=== PATIENT | female | born 1990 | race Caucasian/White ===

== ENCOUNTER 2016-07-08 13:33 | Observation (INO) | payer OTHER ==
[2016-07-08] MEDS ORDERED: NS 0.9% 1000 ML* 1,000 ML IV ONE (14:11)
[2016-07-08 14:40] LABS: Hematocrit 40 % (35-47); Hemoglobin 13.5 g/dl (12.0-16.0); Mean Corpuscular HGB Conc 34 g/dl (31-36); Mean Corpuscular Hemoglobin 30 pg (27-31); Mean Corpuscular Volume 89 fL (80-97); Mean Platelet Volume 9 um3 (7.4-10.4); Red Blood Count 4.48 10^6/ul (4.0-5.4); Red Cell Distribution Width 12 % (10.5-15)
[2016-07-08 14:57] LABS: ALT 12 U/L (7-52); AST 16 U/L (13-39); Albumin 4.8 g/dL (3.2-5.2); Alkaline Phosphatase 30 U/L (34-104); Anion Gap 11 mmol/L (2-11); BUN/Creatinine Ratio 15.9 (8-20); Blood Urea Nitrogen 13 mg/dL (6-24); CO2 Carbon Dioxide 23 mmol/L (22-32); Calcium 9.9 mg/dL (8.6-10.3); Chloride 101 mmol/L (101-111); EGFR African American 107.5 (>60); EGFR Non-African American 83.6 (>60); Globulin 2.6 g/dL (2-4); Glucose 133 mg/dL (70-100); Potassium 3.4 mmol/L (3.5-5.0); Sodium 135 mmol/L (133-145); Total Protein 7.4 g/dL (6.4-8.9)
[2016-07-08 15:15] LABS: Urine Bacteria 1+ (Absent); Urine Bilirubin Negative (Negative); Urine Glucose Negative (Negative); Urine Nitrite Negative (Negative)
[2016-07-08 15:34] LABS: Acetaminophen < 15 mcg/mL; Alcohol < 10 mg/dL (<10); Salicylate < 2.50 mg/dL (<30)
[2016-07-08 15:35] LABS: Benzodiazepine Urine Screen None Detected (None Detect)
[2016-07-08 15:45] LABS: TSH (Thyroid Stimulating Horm) 4.13 mcIU/mL (0.34-5.60)
[2016-07-08] MEDS ORDERED: Potassium Chlor TAB* 20 MEQ TAB.ER PO ONE (16:08)
[2016-07-08] MEDS ORDERED: Acetaminophen TAB* 325 MG PO PRN (17:48)
[2016-07-08] MEDS ORDERED: NS 0.9% 1000 ML* 2,000 ML IV ONE (17:48)
[2016-07-08] MEDS ORDERED: NS 0.9% 1000 ML* 1,000 ML IV SCH (18:00)
[2016-07-08 18:16] LABS: Amylase 40 U/L (29-103); Lipase < 10 U/L (11.0-82.0)
--- NOTE | 2016-07-08 18:33 | ED ---
Shashi Dhaliwal Auryana, scribed for Silverio Rao MD on 07/08/16 at 1420 . Psychiatric Complaint - HPI Summary HPI Summary: 25 year old female presents to ED with CC of chest pain on triage. She also states that she took more than the advised amount of her prescription - intentionally - reports took too much of all of them. On initial registration with ER front end developer designer staff - patient states that she has mental health history but did not explicitly state, and stated that she was a [employer] Student. She denies any vomiting when asked. PRESCRIPTIONS PRESENT IN PATIENT'S PURSE ON ED VISIT- SEE NURSES NOTE 07/08/16 15 :44 - History Of Current Complaint Chief Complaint: EDMentalHealth Time Seen by Provider: 07/08/16 14:08 Hx From Patient Unobtainable Due To: Other - level 5 caveat due to agitation- uncooperative Character: Fearful, Anxious, Angry, Frustrated Associated Signs And Symptoms: Positive: Paranoid Behavior Ingestion History: Type/Name Of Drug - methylphenidate 18mg lorazepam cyclobenzaprine, Amount Ingested - methylphenidate 18 mg unknown lorazepam 0.5 mg unknown cyclobenzaprine 5 mg unknown, Approximate Time Of Ingestion - unknown - [employer] - Allergies/Home Medications Home Medications: Home Medications Unobtainable [Unobtainable] 07/08/16 [History Confirmed 07/08/16] PMH/Surg Hx/FS Hx/Imm Hx Infectious Disease History: Denies: Traveled Outside the [place] in Last 30 Days - Additional Comments History Additional Comments: level 5 caveat to due agitation/uncooperative Review of Systems - ROS Summary Review of Systems Summary: level 5 caveat due to agitation-uncooperative Positive: Chest Pain - per triage Positive: Abdominal Pain - per nurse Positive: Other - agitiation All Other Systems Reviewed And Are Negative: Yes Physical Exam - Summary Physical Exam Summary: VITAL SIGNS: Reviewed. GENERAL: Patient is a well-developed and nourished female who is lying agitated in the stretcher. She is incoherent. Patient is not in any acute respiratory distress. She is a level 5 caveat due to agitation/uncooperative HEAD AND FACE: No signs of trauma. No ecchymosis, hematomas or skull depressions. No sinus tenderness. EYES: PERRLA, EOMI x 2, No injected conjunctiva, no nystagmus. EARS: Hearing grossly intact. Ear canals and tympanic membranes are within normal limits. MOUTH: Oropharynx within normal limits. NECK: Supple, trachea is midline, no adenopathy, no JVD, no carotid bruit, no c- spine tenderness, neck with full ROM. CHEST: Symmetric, no tenderness at palpation LUNGS: Clear to auscultation bilaterally. No wheezing or crackles. CVS: Tachycardic but regular rhythm S1 and S2 present, no murmurs or gallops appreciated. ABDOMEN: Soft, non-tender. No signs of distention. No rebound no guarding, and no masses palpated. Bowel sounds are normal. EXTREMITIES: FROM in all major joints, no edema, no cyanosis or clubbing. NEURO: Alert and oriented x 3. No acute neurological deficits. Speech is normal and follows commands. SKIN: Dry and warm Triage Information Reviewed: Yes Vital Signs On Initial Exam: Initial Vitals Temp Pulse Resp BP Pulse Ox 98.5 F 82 20 128/78 98 07/08/16 14:01 07/08/16 14:01 07/08/16 14:01 07/08/16 14:01 07/08/16 14:01 Vital Signs Reviewed: Yes Completion Of Physical Exam Limited Due To: Level 5 - level 5 caveat due to agitation/uncooperative Diagnostics - Vital Signs Vital Signs Temp Pulse Resp BP Pulse Ox 07/08/16 14:01 98.5 F 82 20 128/78 98 - Laboratory Lab Results: Lab Results 07/08/16 07/08/16 07/08/16 Range/Units 14:28 14:28 14:48 WBC 10.0 (3.5-10.8) 10^3/ul RBC 4.48 (4.0-5.4) 10^6/ul Hgb 13.5 (12.0-16.0) g/dl Hct 40 (35-47) % MCV 89 (80-97) fL MCH 30 (27-31) pg MCHC 34 (31-36) g/dl RDW 12 (10.5-15) % Plt Count 272 (150-450) 10^3/ul MPV 9 (7.4-10.4) um3 Neut % (Auto) 84.3 H (38-83) % Lymph % (Auto) 11.7 L (25-47) % [place] % (Auto) 3.1 (1-9) % Eos % (Auto) 0.1 (0-6) % Baso % (Auto) 0.8 (0-2) % Absolute Neuts (auto) 8.4 H (1.5-7.7) 10^3/ul Absolute Lymphs (auto) 1.2 (1.0-4.8) 10^3/ul Absolute Monos (auto) 0.3 (0-0.8) 10^3/ul Absolute Eos (auto) 0 (0-0.6) 10^3/ul Absolute Basos (auto) 0.1 (0-0.2) 10^3/ul Absolute Nucleated RBC 0.01 10^3/ul Nucleated RBC % 0.1 Sodium 135 (133-145) mmol/L Potassium 3.4 L (3.5-5.0) mmol/L Chloride 101 (101-111) mmol/L Carbon Dioxide 23 (22-32) mmol/L Anion Gap 11 (2-11) mmol/L BUN 13 (6-24) mg/dL Creatinine 0.82 (0.51-0.95) mg/dL Est GFR ( Amer) 107.5 (>60) Est GFR (Non-Af Amer) 83.6 (>60) BUN/Creatinine Ratio 15.9 (8-20) Glucose 133 H (70-100) mg/dL Calcium 9.9 (8.6-10.3) mg/dL Total Bilirubin 0.70 (0.2-1.0) mg/dL AST 16 (13-39) U/L ALT 12 (7-52) U/L Alkaline Phosphatase 30 L (34-104) U/L Troponin I 0.00 (<0.04) ng/mL Total Protein 7.4 (6.4-8.9) g/dL Albumin 4.8 (3.2-5.2) g/dL Globulin 2.6 (2-4) g/dL Albumin/Globulin Ratio 1.8 (1-3) Amylase 40 (29-103) U/L Lipase < 10 L (11.0-82.0) U/L TSH 4.13 (0.34-5.60) mcIU/mL Beta HCG, Quant < 0.60 mIU/mL Urine Color Felicia Urine Appearance Cloudy Urine pH 6.0 (5-9) Ur Specific [place] 1.024 (1.010-1.030) Urine Protein 1+(30 mg/dl) H (Negative) Urine Ketones 1+ H (Negative) Urine Blood 1+ H (Negative) Urine Nitrate Negative (Negative) Urine Bilirubin Negative (Negative) Urine Urobilinogen Negative (Negative) Ur Leukocyte Esterase 2+ H (Negative) Urine WBC (Auto) 1+(6-10/hpf) H (Absent) Urine RBC (Auto) 3+(>10/hpf) H (Absent) Ur Squamous Epith Cells Present H (Absent) Urine Bacteria 1+ H (Absent) Hyaline Casts Present H (Absent) Urine Glucose Negative (Negative) Urine Ascorbic Acid * H (Negative) Salicylates < 2.50 (<30) mg/dL Urine Opiates Screen (None Detect) Acetaminophen < 15 mcg/mL Ur Barbiturates Screen (None Detect) Ur Phencyclidine Scrn (None Detect) Ur Amphetamines Screen (None Detect) U Benzodiazepines Scrn (None Detect) Urine Cocaine Screen (None Detect) U Cannabinoids Screen (None Detect) Serum Alcohol < 10 (<10) mg/dL 07/08/16 Range/Units 14:48 WBC (3.5-10.8) 10^3/ul RBC (4.0-5.4) 10^6/ul Hgb (12.0-16.0) g/dl Hct (35-47) % MCV (80-97) fL MCH (27-31) pg MCHC (31-36) g/dl RDW (10.5-15) % Plt Count (150-450) 10^3/ul MPV (7.4-10.4) um3 Neut % (Auto) (38-83) % Lymph % (Auto) (25-47) % [place] % (Auto) (1-9) % Eos % (Auto) (0-6) % Baso % (Auto) (0-2) % Absolute Neuts (auto) (1.5-7.7) 10^3/ul Absolute Lymphs (auto) (1.0-4.8) 10^3/ul Absolute Monos (auto) (0-0.8) 10^3/ul Absolute Eos (auto) (0-0.6) 10^3/ul Absolute Basos (auto) (0-0.2) 10^3/ul Absolute Nucleated RBC 10^3/ul Nucleated RBC % Sodium (133-145) mmol/L Potassium (3.5-5.0) mmol/L Chloride (101-111) mmol/L Carbon Dioxide (22-32) mmol/L Anion Gap (2-11) mmol/L BUN (6-24) mg/dL Creatinine (0.51-0.95) mg/dL Est GFR ( Amer) (>60) Est GFR (Non-Af Amer) (>60) BUN/Creatinine Ratio (8-20) Glucose (70-100) mg/dL Calcium (8.6-10.3) mg/dL Total Bilirubin (0.2-1.0) mg/dL AST (13-39) U/L ALT (7-52) U/L Alkaline Phosphatase (34-104) U/L Troponin I (<0.04) ng/mL Total Protein (6.4-8.9) g/dL Albumin (3.2-5.2) g/dL Globulin (2-4) g/dL Albumin/Globulin Ratio (1-3) Amylase (29-103) U/L Lipase (11.0-82.0) U/L TSH (0.34-5.60) mcIU/mL Beta HCG, Quant mIU/mL Urine Color Urine Appearance Urine pH (5-9) Ur Specific [place] (1.010-1.030) Urine Protein (Negative) Urine Ketones (Negative) Urine Blood (Negative) Urine Nitrate (Negative) Urine Bilirubin (Negative) Urine Urobilinogen (Negative) Ur Leukocyte Esterase (Negative) Urine WBC (Auto) (Absent) Urine RBC (Auto) (Absent) Ur Squamous Epith Cells (Absent) Urine Bacteria (Absent) Hyaline Casts (Absent) Urine Glucose (Negative) Urine Ascorbic Acid (Negative) Salicylates (<30) mg/dL Urine Opiates Screen None detected (None Detect) Acetaminophen mcg/mL Ur Barbiturates Screen None detected (None Detect) Ur Phencyclidine Scrn None detected (None Detect) Ur Amphetamines Screen None detected (None Detect) U Benzodiazepines Scrn None detected (None Detect) Urine Cocaine Screen None detected (None Detect) U Cannabinoids Screen None detected (None Detect) Serum Alcohol (<10) mg/dL Result Diagrams: 07/08/16 14:28 07/08/16 14:28 Lab Statement: Any lab studies that have been ordered have been reviewed, and results considered in the medical decision making process. - EKG 14:11 EKG Interpretation: sinus tachycardia @134 - without ST elevation Course/Dx - Course Assessment/Plan: Test results WNL except potassium 3.4 and glucose 133. Urine toxicology negative. EKG sinus tachycardia @ 134 - without ST elevation. In ED course- received IV fluids and heart rate decreased to 105 BPM. We discussed case with poison control and recommend observation for 12 hours. Patient is now hemodynamically stable. At that time, I discussed the patient with Dr. Nunes who accepted the patient for admission. - Differential Dx/Clinical Impression Differential Diagnosis/HQI/PQRI: Positive: Drug Overdose/Intentional Provider Diagnosis: Intentional drug overdose - Physician Notifications Discussed Care Of Patient With: Dr. Nunes Time Discussed With Above Provider: 16:25 - agrees to admit for 12 hour observation Discharge - Discharge Plan Condition: Stable Disposition: ADMITTED TO [facility] documentation as recorded by the Shashi thomas Auryana accurately reflects the service I personally performed and the decisions made by , Silverio Rao MD.
[2016-07-08] MEDS ORDERED: cefTRIAXone VIAL(*) 1,000 MG in NS 0.9% 50 ML* 50 ML IVPB SCH (21:00)
[2016-07-08] MEDS ORDERED: LORazepam INJ* 2 MG/ML 1 ML VIAL IV PUSH ONE (21:00)
--- NOTE | 2016-07-09 00:52 | HP ---
HISTORY AND PHYSICAL: DATE OF ADMISSION: 07/08/16 PRIMARY CARE PROVIDER: Unknown. ATTENDING PHYSICIAN WHILE IN THE HOSPITAL: Dr. Devon Nunes* (report being dictated by Freddy Oviedo NP). CHIEF COMPLAINT: "I took too much of my medicine." HISTORY OF PRESENT ILLNESS: Ms. Jasso is a 25-year-old female patient. We really did not have much history on her as she is not very forthcoming with why she came in today, but according to records and according to her recall, she just took too much of her Flexeril, Ritalin, and Ativan. She came up to the triage desk today, says that she took too much of her medications. She was complaining of chest pain and abdominal pain. She says that she was concerned. There was concern and the triage had asked if she was trying to take her life and she said, yes. At that point, she was brought back to the emergency department and Poison Control was contacted and it was felt that we should admit the patient to evaluate her on telemetry as she was noted to be tachycardic. In discussion with the patient, she said that she was trying to hurt herself. She does not elaborate on details as to why she did this. She does admit to saying that she does have a history of schizophrenia, although I am unable to confirm this report. She says that she is not having any chest pain currently. Denies any abdominal pain. She states she does not feel short of breath and says that she just did not really feel well. She says that she just felt ill, but does not elaborate on this. She does state that she took some perhaps [id number] medications, although she does not want to name them and when I have asked her the questions several times, she says, "no more questions. I do not want to speak about this." PAST MEDICAL HISTORY: Unknown. She did admit to saying that she has a history of schizophrenia. PAST SURGICAL HISTORY: Unknown. HOME MEDICATIONS: Unknown. ALLERGIES TO MEDICATIONS: Unknown. FAMILY HISTORY: Unknown. SOCIAL HISTORY: It does appear that she is a [employer] student, but she does not answer when asked if she is a smoker or a drinker. REVIEW OF SYSTEMS: Attempted, but was unable to be obtained because of the altered mental status. PHYSICAL EXAMINATION GENERAL: At this time, Ms. Jasso is a 25-year-old female patient. She appears to be well nourished, well developed. She does not appear to be in any acute distress. VITAL SIGNS: Reveals blood pressure 122/66, pulse of 132, she does have a heart rate now of 115, respirations are 20, O2 sat was 100%, and temperature 99.8. HEENT: Head is atraumatic, normocephalic. Eyes: EOMs are intact. Her pupils react to light. NECK: Supple. Throat: Oral mucosa appears to be moist. No oropharyngeal erythema. LUNGS: Clear to auscultation. No wheezes, rales, or rhonchi. HEART: Sounds S1, S2. Regular rate and rhythm. She is tachycardic. ABDOMEN: Soft, flat, and nontender. Bowel sounds present. EXTREMITIES: Pulses 2+ throughout. Able to move all 4 extremities with 5/5 strength. NEUROLOGIC: The patient is awake. She is alert and oriented x3. Tongue midline. She is confused only to the month, but she knows where she is. She knows her name. Her baggage and mail agent are equal. Tongue is midline. [id number] intact bilaterally. Heel- to-loredo intact bilaterally. Pulses 2+ throughout. She is able to move all 4 extremities with 5/5 strength. SKIN: Intact. DIAGNOSTIC STUDIES/LAB DATA: Labs today revealed WBC of 10.0, RBC of 4.48, hemoglobin 13.5, hematocrit 40, and platelet count of 272. Sodium was 135, potassium 3.4, chloride of 101, bicarb 23, BUN 13, creatinine of 0.82, glucose 133, and calcium 9.9. Total bili 0.7, AST 16, ALT 12, and alk phos 30. Troponin 0. Albumin 4.8. Urine showed 1+ protein, 1+ ketones, 1+ blood, 2+ leukocyte esterase, 1+ wbc, 3+ rbc, and 1+ bacteria. The urine was obtained. It was negative. She had an EKG obtained today, which showed a sinus tachycardia at a rate of 134, no ST elevations or T-wave inversions, no previous for comparison. Old medical records were limited. ASSESSMENT AND PLAN: Ms. Jasso is a 25-year-old female patient coming to the ER today with complaints of abdominal pain, chest pain, but also stating that she was overdosed on medications. It is unknown what really took and felt that she was trying to take her life. She does state she has a history of schizophrenia. She will be admitted under observation status for: 1. Overdosing: Again etiology is unclear what she actually took. Our plan is to observe her on telemetry, monitor her heart rate, hydrate her, and then when she is medically able, we will get a psychiatric evaluation. She will be on a one-to-one suicide watch. 2. History of schizophrenia: Again, this is unknown if this is true or not. She does state that she has a psychiatric nurse practitioner, last name of Francheska here at [facility], but unfortunately, they are closed for the day. We will try to get collateral from them. 2. DVT prophylaxis: She is low risk, she will be placed on SCDs. 3. Code status: Full code. 4. Fluids, electrolytes, and nutrition: She can have a regular diet. 5. Question of urinary tract infection: Urine does appear to be dirty. I will put her on Rocephin for the time being and await for culture report. TIME SPENT: Time spent on the admission was approximately 70 minutes, greater than half the time was spent [id number] with the patient obtaining my history and physical, the other half time is spent going over the plan of care with the patient and implementing plan of care. I did discuss the plan of care with my attending, Dr. Nunes. He is in agreement. FREDDY OVIEDO NP [id number]/[facility] #: [id number] [place]
[2016-07-09 05:02] VITALS: BP 97/48
[2016-07-09 05:52] LABS: Hematocrit 38 % (35-47); Hemoglobin 12.7 g/dl (12.0-16.0); Mean Corpuscular HGB Conc 33 g/dl (31-36); Mean Corpuscular Hemoglobin 30 pg (27-31); Mean Corpuscular Volume 90 fL (80-97); Mean Platelet Volume 9 um3 (7.4-10.4); Red Blood Count 4.22 10^6/ul (4.0-5.4); Red Cell Distribution Width 13 % (10.5-15); White Blood Count 8.1 10^3/ul (3.5-10.8)
[2016-07-09 06:01] LABS: BUN/Creatinine Ratio 11.1 (8-20); Calcium 8.9 mg/dL (8.6-10.3); EGFR African American 145.8 (>60); EGFR Non-African American 113.4 (>60); Potassium 3.5 mmol/L (3.5-5.0)
--- NOTE | 2016-07-10 01:14 | DS ---
DISCHARGE SUMMARY: DATE OF ADMISSION: 07/08/16 DATE OF DISCHARGE AND TRANSFER: To our psychiatric unit, 07/09/16. PRIMARY CARE PHYSICIAN: None. DISCHARGE DIAGNOSIS: Overdose on Ritalin, Concerta, and lorazepam. SECONDARY DIAGNOSIS: Question of history of schizophrenia. MEDICATIONS AT DISCHARGE: None. HOSPITALIZATION COURSE: Edyta Jasso is a 25-year-old female, who is rather a poor historian but she stated that she had semester at the [employer] this year and she presented to the hospital after she stated that she took several tablets of Concerta, Ritalin, and lorazepam. As per poison control center, the patient was recommended 12 hours' observation on telemetry monitored bed. The patient was monitored on a telemetry bed overnight. She has had no arrhythmias. She continued to be a very vague historian. She will not tell us who is her primary care provider is and who prescribed her the medications that she is on. She stated that she took the overdose because she was "sad and bored." The psychiatry nurse saw the patient in consultation and after discussion with Dr. Sanderson, psychiatrist, it was recommended for the patient to be admitted to the psychiatric floor for further evaluation and treatment. PHYSICAL EXAMINATION: At the time of transfer to the psychiatric unit: Vitals : Blood pressure of 97/48, heart rate of 76 and regular, respiratory rate 16, oxygen saturation 99% on room air, temperature 98.2. General: The patient is a very pleasant 25-year-old female, who is in no acute distress. Alert, awake, and oriented x3. HEENT: Head atraumatic, normocephalic. Eyes: Pupils equal, round, and reactive to light and accommodation. Oropharynx clear. Mucosa moist. Neck: Supple. No JVD. No bruits bilaterally. Cardiovascular: Regular rate and rhythm, no murmur. Respiratory: Clear to auscultation bilaterally. Abdomen: Soft and nontender. Bowel sounds present in all 4 quadrants. Extremities: There is no edema. Pulses present 2+ bilaterally. No clubbing or cyanosis. Neuro Evaluation: Speech is clear. Cranial nerves II through XII are grossly intact. Motor strength is 5/5 bilaterally. Please note that this is a short summary of the patient's hospital stay. Please refer to further medical records for details. TIME SPENT: Approximately 35 minutes was spent on the patient's discharge. [id number]/[facility] #: [id number] MTDD
== END 2016-07-09 09:10 ==
LOC: ED 13:33 → MEDTELE 17:48
PROVIDERS: ADMIT Internal Medicine; ATTEND Internal Medicine
DX: T43.632A Poisoning by methylphenidate, intentional self-harm, initial encounter (principal); T42.4X2A Poisoning by benzodiazepines, intentional self-harm, initial encounter; T48.1X2A Poisoning by skeletal muscle relaxants [neuromuscular blocking agents], intentional self-harm, initial encounter; Y92.9 Unspecified place or not applicable; R07.9 Chest pain, unspecified; R10.9 Unspecified abdominal pain; F20.9 Schizophrenia, unspecified; Z79.899 Other long term (current) drug therapy; I49.3 Ventricular premature depolarization; R00.0 Tachycardia, unspecified
CPT/HCPCS: 36415; 80048; 80053; 80307; 80320; 80329; 81003; 81015; 82150; 83690; 84443; 84484; 84702; 85025; 87086; 93005; 96361; 96374; 96375; 99285; A9270-GY; G0378; G0480; J0696; J2060

== ENCOUNTER 2016-07-09 07:49 | Inpatient (IN) | payer OTHER ==
[2016-07-09] MEDS ORDERED: Acetaminophen TAB* 325 MG PO PRN (11:47)
[2016-07-09] MEDS: Ibuprofen TAB* 400 MG PO PRN (11:57)
[2016-07-09] MEDS ORDERED: Mouth Piece, Nicotine* 1 EACH CARTRIDGE INH ONE (12:00)
--- NOTE | 2016-07-09 14:12 | HP ---
ADMISSION HISTORY AND PHYSICAL: DATE OF ADMISSION: 07/09/16 DATE OF EVALUATION: 07/09/16 IDENTIFICATION: Edyta Jasso is a 25-year-old woman who has reported to the emergency department staff that she took an overdose of Flexeril, Ativan, and Ritalin to kill herself with initial complaint of chest pain and abdominal pain. She was observed on the medical floor on telemetry under advisement of Poison Control due to tachycardia and has been medically cleared and admitted to the [address] [place], [place] [address] for safety, assessment and treatment. She is an unreliable historian. HISTORY OF THE PRESENT ILLNESS: Information was obtained by interview with the patient and review of the electronic medical record. The patient reports "I am here because I took too much of my medication and I tried to kill myself." On review of mood symptoms, she reports that her mood is "temperate." She reports that she is not depressed but mostly just angry. She reports that she attempted suicide because she was just bored and upset and that her anger is directed at boys due to relationship issues. Characteristic of most of her responses to questions, she gives equivocal report of anhedonia when first asked about it, saying "some ways yes, some ways no," then clarifies that she is still interested in writing and music and no longer interested in camping or sailing. She reports that she feels worthless and guilty all the time and has for about the past 4 to 5 months. She reports that her sleep is about 12 to 14 hours per day with extremely low energy. She reports having separation anxiety from her ex-boyfriend. She reports that her appetite is variable but that she is gaining weight. She reports that she usually has difficulties with concentration and decision making. When asked if she is more hopeful or hopeless, she reports "no comment." With regard to suicidal ideation , she states that she does not want to be but she has thoughts about being and would not elaborate how these contradictory statements could be reconciled when asked to do so. She said that she did not have a gun then said that she did have a gun and then said that she did not have a gun. She reports that she has no stress in her life right now when asked what her parmar stressors are. With regard to symptoms of nola including feeling on top of the world or incredibly irritable, or having decreased need for sleep, racing thoughts, talking fast, or spending a lot of money or other unwise impulsive activity, she reports "not necessarily" and will not give any clearer report of this but then gives her explanation as "all people have bipolar tendencies from time to time." She states that her anxiety is always a 10/10. She reports that she has never had panic attacks and then reports that she sometimes has panic attacks and will not elaborate her symptoms of panic attacks. She denies ever any history of trauma leading to any PTSD symptoms but in an offhand way that appears to reflect no true consideration of the question. She reports that she does not have difficulty convincing herself that when she has checked that something is locked or off that it is locked or off, but does report that will have to clean her hands twice to convince herself that she is not carrying away germs from a surface contacted. She reports when asked about psychosis "from time to time usually, having voices or vision" then states "I don't know" and then states "I am just joking." MENTAL STATUS EXAMINATION: This is a young woman looking her age in hospital scrubs. She makes no eye contact. Her speech has regular rate and volume but with long latencies. She has a guarded thought process versus possible impoverishment of thought disorder. She reports her mood as "a little startled. " Her affect is incongruent to topics being discussed with frequent inappropriate laughter. She gives equivocal reports as regards having any auditory or visual hallucinations or paranoid ideation and likewise equivocal report as regards any suicidal ideation. She does state unequivocally that she has no intent of harming anyone. Her insight and judgment are impaired. Her impulse control is thus far intact. She does have adequate grooming and hygiene for the setting. PAST PSYCHIATRIC HISTORY: When asked if she has ever been admitted before to the psychiatric unit, her reply is "yes yesterday." When asked if any time before then, she states no, she has not been admitted psychiatrically before then. She reports that she has been receiving care from Renetta Pritchard at [facility]. She had reported in the emergency department a diagnosis of schizophrenia but then tells me that "I was just having trouble putting into words my emotions," and denies diagnosis with schizophrenia. She reports being on Ativan and Concerta but again after a very long latency, so it is difficult to know her subjective certainty in giving this report. When asked why she = said that she had schizophrenia in the emergency department, she states "I don't know, I'm not really sure, it must have been somebody who was putting words in my mouth." With regard suicide/self harm, she reports that at the age of 14, she "drank some sort of like pills." She reports that she did this because she was just angry. With regard to any suicidal ideation since that time, she reports with a laugh "I don't know." SUBSTANCE ABUSE HISTORY: She denies any abuse of alcohol, marijuana, cocaine, heroin, pain pills, of hallucinogens. She reports huffing glue frequently. Again these reports appear to have limited reliability given their long latencies and inconsistencies. She has reported abuse of Flexeril and other prescription medications in the overdose prior to this admission. When asked if she was a smoker, she paused for 20 seconds and then replied "yes" stating that she has been smoking about 4 cigarettes a day and is in the process of quitting smoking. FAMILY PSYCHIATRIC HISTORY: She reports that "yes everybody in their own unique and respective ways" has mental illness in her family. SOCIAL HISTORY: She reported in the emergency department being a [employer] student but when asked how far she got in the program, she reported that she was offended by this question and would not give further report on that subject. She has a brother in [place] and parents in [place] per information gathered in the emergency department. 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 She reports having come to [place] from [place]. She reports having done well in school. She reports having dropped out from course work at [employer]. LEGAL HISTORY/VIOLENCE HISTORY: She denies any history of agitation, aggression or violence, she denies any legal history. MEDICAL HISTORY: She denies any past medical history although she does report that she will have seizures from time to time and then states that she does not have seizures. She denies having any history of traumatic brain injuries, fainting spells or heart problems. When asked when her last menstrual period, she replies "no." When asked if she is on control, she got up and left the room and ended the interview, but before doing so, stated that she had not had any operations and had given reply to questions about any active symptoms as "you are achy" and stated that she was having a little bit of both nausea and vomiting when asked about those symptoms, but showed no signs of any vomiting activity. She did have a full physical examination by Freddy Oseguera and an EKG was assessed as well in the context of clearance on telemetry under advisement from Poison Control. PHYSICAL EXAMINATION Physical examination was documented by the medical service as entirely within normal limits. As she has not given me any report of active symptoms to be explored, I will not repeat that physical examination. VITAL SIGNS: at 10:16 a.m. today, she had a temp of 98.8, pulse of 86, respiratory rate 16, saturating 99% on room with the blood pressure 96/69. DIAGNOSTIC STUDIES/LAB DATA: Repeat CBC with differential done at 5:39 a.m. on 07/09/16 was entirely within normal limits. Comprehensive metabolic panel showed recovery to normal values on a recheck done at 5:39 a.m. on 07/09/16 from an initial check at 1428 on 07/08/16 that had an elevated glucose to 133 correcting down to 89. Alkaline phosphatase was mildly low at 30 on initial check and was not repeated; lipase was less than 10 on that initial check. test negative. TSH normal at 4.13. Urinalysis found 1+ protein, 1+ ketones, 1+ blood, 2+ leukocyte esterase, 1+ whites, 3+ reds. Squamous cells present, 1+ bacteria, casts present with high ascorbic acid. Freddy Oseguera did note that he was starting Rocephin for presumed urinary tract infection while awaiting culture results. Toxicology screen was negative for all substances in serum and urine. MEDICATIONS: At admission noted in the medical record as unobtainable home medications but in the emergency department documentation, it is indicated that she had contributing to her overdose: 1. Methylphenidate 18 mg tablets. 2. Lorazepam 0.5 mg tablets. 3. Cyclobenzaprine 5 mg tablets. ALLERGIES: Reports having a BEE allergy, requests that an EpiPen be available. ASSESSMENT AND PLAN: Edyta Jasso is a 25-year-old woman who reported to the emergency department that she had schizophrenia and that she overdosed on Ativan, Ritalin, and Flexeril in a suicide attempt. She was admitted to the medical floor for observation for 24-hours and medically cleared and has been transferred to this unit for safety, assessment and treatment. Her report to me is contradictory more often than it is consistent, so there is no clear picture of her psychiatric history or psychiatric status. She is guarded, laughing inappropriately at times throughout the interview, denying but also endorsing symptoms of psychosis and dangerous intent and plan. She does give us possibly useful information that she has been under the care of Renetta Pritchard in the community. We will be seeking HIPAA release to speak with her outpatient providers to gather more information about her psychiatric history and her recent presentations. We will also be seeking release to be able to speak with her brother and parents. Her brother was contacted during the emergency evaluation in the emergency department. We will be offering her group programming and involvement in therapeutic milieu. We will be considering antipsychotic medications against what appears to be an active psychotic process although there is the remote possibility that we are hearing malingered reports for some reason. We will be primarily awaiting for her to be adequately organized or willing to give us a clear report of her current mental status to guide our care of her. DIAGNOSES: 1. Psychotic disorder, not otherwise specified. 2. Mood disorder, not otherwise specified. 3. Rule out chronic psychotic disorder. 4. Rule out undetected substance ingestion contributory to presentation with overtly psychotic symptoms. [id number]/[facility] #: [id number] MTDD
[2016-07-09] MEDS ORDERED: OLANzapine TAB* 5 MG PO SCH (21:00)
[2016-07-10] MEDS ORDERED: diPHENhydraMINE IV* 50 MG/ML 1 ml VIAL (BENADRYL) IM ONE (08:59)
[2016-07-10] MEDS ORDERED: Haloperidol INJ IV/IM* 5 MG/ML AMP IM ONE (08:59)
[2016-07-10] MEDS ORDERED: LORazepam INJ* 2 MG/ML 1 ML VIAL IM ONE (08:59)
[2016-07-10] MEDS ORDERED: LORazepam INJ* 2 MG/ML 1 ML VIAL ONE (09:01)
[2016-07-10] MEDS ORDERED: Haloperidol INJ IV/IM* 5 MG/ML AMP ONE (09:02)
[2016-07-10] MEDS ORDERED: diPHENhydraMINE IV* 50 MG/ML 1 ml VIAL (BENADRYL) ONE (09:02)
[2016-07-10] MEDS ORDERED: Haloperidol TAB* 5 MG PO ONE (09:06)
[2016-07-10] MEDS ORDERED: diPHENhydraMINE PO* 50 MG PO ONE (09:06)
[2016-07-10] MEDS ORDERED: LORazepam TAB(*) 1 MG PO ONE (09:06)
[2016-07-10] MEDS ORDERED: Haloperidol TAB* 5 MG ONE (09:09)
[2016-07-10] MEDS ORDERED: LORazepam TAB(*) 1 MG ONE (09:09)
[2016-07-10] MEDS ORDERED: diPHENhydraMINE PO* 50 MG ONE (09:09)
[2016-07-10] MEDS: OLANzapine TAB*ODT* 5 MG PO PRN (09:14)
[2016-07-10] MEDS: Vitamin THERAPEUTIC TAB PO SCH (09:40)
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
[2016-07-10] MEDS: OLANzapine TAB* 5 MG PO SCH (21:34)
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
[2016-07-11] MEDS: Vitamin THERAPEUTIC TAB PO SCH (09:05)
[2016-07-11] MEDS: Ibuprofen TAB* 400 MG PO PRN (16:47)
[2016-07-11] MEDS: OLANzapine TAB* 5 MG PO SCH (21:31)
--- NOTE | 2016-07-11 21:38 | RAD ---
HISTORY: Patient with psychosis reports having a brain tumor COMPARISONS: None TECHNIQUE: The following sequences were obtained of the head: Sagittal T1-weighted images, axial T2-weighted images, axial FLAIR images, axial susceptibility weighted images, axial T1-weighted images. Additionally, axial diffusion-weighted images were obtained with calculated apparent diffusion coefficients.. FINDINGS: HEMORRHAGE/INFARCT: There is no hemorrhage or acute infarct. MASSES/SHIFT: There is no mass or shift. EXTRA-AXIAL SPACES/MENINGES: There are no extra-axial fluid collections. SULCI AND VENTRICLES: The sulci and ventricles are normal in size and position for the patient's stated age. CEREBRUM: There are no focal parenchymal abnormalities. BRAINSTEM: There are no focal parenchymal abnormalities. CEREBELLUM: There are no focal parenchymal abnormalities. The cerebellar tonsils are normal in size and position. SELLA: The sella is normal. PINEAL: The pineal region is clear. CP ANGLE/TEMPORAL BONES: The labyrinthine structures are grossly normal. VESSELS: Normal flow-voids are noted within the visualized vertebral vasculature. DIFFUSION ABNORMALITIES: There are no diffusion abnormalities. PARANASAL SINUSES/MASTOIDS: There are partially inspissated fluid secretions in the dependent portion of the right maxillary sinus. Remaining visualized paranasal sinuses are clear. ORBITS: The orbits are unremarkable. BONES AND SOFT TISSUE: No bone or soft tissue abnormalities are noted. IMPRESSION: NO MRI EVIDENCE OF INTRACRANIAL ABNORMALITY.
[2016-07-11] MEDS ORDERED: Mouth Piece, Nicotine* 1 EACH CARTRIDGE ONE (22:46)
[2016-07-11] MEDS: Nicotine Inhaler* 10 MG AMP INH PRN (22:46)
[2016-07-12 09:13] LABS: Free T4 0.89 ng/dL (0.61-1.12)
[2016-07-12 09:16] LABS: Prolactin 43.6 ng/mL (1.0-25.0)
[2016-07-12] MEDS: Vitamin THERAPEUTIC TAB PO SCH (09:44)
--- NOTE | 2016-07-12 13:47 | PN ---
Subjective - Subjective Subjective: Attempted to see Otto on follow-up today. She was in her room, n bed. She was guarded, evasive and appeared suspicious when I asked her questions about sleep, appetite, and energy. Objective - Appearance Dysmorphic Features: Yes Hygiene: Normal Grooming: Fairly Well Kept - Behavior Psychomotor Activities: Normal Exhibits Abnormal Movement: No - Attitude and Relatedness Attitude and Relatedness: Superficially Cooperative Eye Contact: Fair - Speech Quality: Unpressured Latencies: Normal Quantity: Appropriate - Mood Patient's Decription of Mood: "Okay" - Affect Observed Affect: Constricted Affect Consistent with: Dysphoria - Level of Consciousness Level of Consciousness: Alert - Impulse Control Impulse Control: Impaired - Insight and Judgement Insight and Judgement: Poor Assessment - Assessment Inpatient DSM-IV Dx: 1. Psychotic disorder, not otherwise specified. 2. Mood disorder, not otherwise specified. 3. Rule out chronic psychotic disorder. 4. Rule out undetected substance ingestion contributory to presentation with overtly psychotic symptoms. Plan - Plan Treatment Plan: Name: OTTO HARDING Birthdate: 1990 [id number] Medications: Current Medications Acetaminophen (Tylenol Tab*) 650 mg PO Q4H PRN PRN Reason: for pain; or Temp >101 F Al Hydrox/Mg Hydrox/Simethicone (Maalox Plus*) 30 ml PO Q4H PRN PRN Reason: INDIGESTION Docusate Sodium (Colace Cap*) 100 mg PO DAILY PRN PRN Reason: CONSTIPATION Ibuprofen (Motrin Tab*) 400 mg PO Q6H PRN PRN Reason: PAIN Last Admin: 07/11/16 16:47 Dose: 400 mg Multivitamins (Theragran Tab*) [address] [facility] Last Admin: 07/12/16 09:44 Dose: Not Given Nicotine (Nicotine Inhaler*) 10 mg INH Q2H PRN PRN Reason: CRAVING Last Admin: 07/11/16 22:46 Dose: 10 mg Olanzapine (Zyprexa * Tab Odt) 5 mg PO Q6H PRN PRN Reason: AGITATION Last Admin: 07/10/16 09:14 Dose: 5 mg Olanzapine (Zyprexa Tab*) [address] [facility] Last Admin: 07/11/16 21:31 Dose: 10 mg
[2016-07-12] MEDS: OLANzapine TAB* 5 MG PO SCH (20:51)
[2016-07-13] MEDS: Vitamin THERAPEUTIC TAB PO SCH (09:12)
[2016-07-13] MEDS: OLANzapine TAB*ODT* 5 MG PO PRN (13:50)
[2016-07-13] MEDS: OLANzapine TAB* 5 MG PO SCH (21:38)
[2016-07-13] MEDS: Docusate CAP* 100 MG PO PRN (21:40)
[2016-07-14] MEDS: Vitamin THERAPEUTIC TAB PO SCH (09:26)
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
[2016-07-14] MEDS: OLANzapine TAB* 5 MG PO SCH (20:58)
[2016-07-14] MEDS: OLANzapine TAB*ODT* 5 MG PO PRN (22:24)
[2016-07-15] MEDS: Vitamin THERAPEUTIC TAB PO SCH (09:38)
--- NOTE | 2016-07-15 13:18 | PN ---
Subjective - Subjective Service Type: [id number] Hosp care 15 min low complexity Subjective: Otto is found in her room, sleeping, but is easily arousable. She is guarded and seems to have some delay in responding to questions, although she is mostly coherent in her responses. She denies any side effects from the olanzapine and states that she's catching up on sleep that she had missed out on prior to admission. She tells me that she withdrew from [employer] graduate school in February of this year but can't seem to think of what she wants to do next with her life. She's renting an apartment in [place] with a roommate but cannot/will not identify that person's name or number. She blurts out "a foster" in response to an earlier question of what she'd like to do occupationally now that she's given up on grad school plans. She denies SI or HI. Objective - Appearance Appearance: Well Developed/Nourished Dysmorphic Features: No Hygiene: Normal Grooming: Fairly Well Kept - Behavior Psychomotor Activities: Normal Exhibits Abnormal Movement: No - Attitude and Relatedness Attitude and Relatedness: Guarded Eye Contact: Fair - Speech Quality: Unpressured Latencies: Long Quantity: Terse - Mood Patient's Decription of Mood: "Okay" - Affect Observed Affect: Tense Affect Consistent with: Dysphoria - Thought Process Patient's Thought Process: Circumstantial Thought Content: Yes Paranoid Ideation, No Suicidal Planning, No Homicidal Ideation - Sensorium Experiencing Hallucinations: No, Sensorium is Clear Type of Hallucinations: Visual: No, Auditory: No, Command: No - Level of Consciousness Level of Consciousness: Alert Orientation: Yes Intact, Yes Orientated to Time, Yes Orientated to Place, Yes Orientated to Person - Impulse Control Impulse Control: Poor - Insight and Judgement Insight and Judgement: Impaired - Group Participation Particating in Group Activities: No - Medication Management Medication Management Adherence: Yes Assessment - Assessment Merits Inpatient Hospitalization: For Immediate Safety, For Stabilization Inpatient DSM-IV Dx: 1. Psychotic disorder, not otherwise specified. 2. Mood disorder, not otherwise specified. 3. Rule out chronic psychotic disorder. 4. Rule out undetected substance ingestion contributory to presentation with overtly psychotic symptoms. Clinical Impression: Unspecified Psychotic DO Plan - Plan Treatment Plan: Name: OTTO HARDING Birthdate: 1990 [id number] The patient is taking olanzapine 10mg PO qhs and appears better organized and less agitated than at admission. She likely has a chronic psychotic disorder and d/c planning will be important in terms of identifying supports in the community. Continue to await further stabilization. Continued Medication Management: Start Medication Medications: Current Medications Acetaminophen (Tylenol Tab*) 650 mg PO Q4H PRN PRN Reason: for pain; or Temp >101 F Al Hydrox/Mg Hydrox/Simethicone (Maalox Plus*) 30 ml PO Q4H PRN PRN Reason: INDIGESTION Docusate Sodium (Colace Cap*) 100 mg PO DAILY PRN PRN Reason: CONSTIPATION Last Admin: 07/13/16 21:40 Dose: 100 mg Ibuprofen (Motrin Tab*) 400 mg PO Q6H PRN PRN Reason: PAIN Last Admin: 07/11/16 16:47 Dose: 400 mg Multivitamins (Theragran Tab*) 1 tab PO DAILY [facility] Last Admin: 07/15/16 09:38 Dose: Not Given Nicotine (Nicotine Inhaler*) 10 mg INH Q2H PRN PRN Reason: CRAVING Last Admin: 07/11/16 22:46 Dose: 10 mg Olanzapine (Zyprexa * Tab Odt) 5 mg PO Q6H PRN PRN Reason: AGITATION Last Admin: 07/14/16 22:24 Dose: 5 mg Olanzapine (Zyprexa Tab*) 10 mg PO BEDTIME [facility] Last Admin: 07/14/16 20:58 Dose: 10 mg - Discharge Plan Discharge Plan: Inpatient Hospitalization
[2016-07-15] MEDS: OLANzapine TAB*ODT* 5 MG PO PRN (14:16)
[2016-07-15] MEDS: Ibuprofen TAB* 400 MG PO PRN (14:16)
[2016-07-15] MEDS: OLANzapine TAB* 5 MG PO SCH (21:39)
[2016-07-16] MEDS: Vitamin THERAPEUTIC TAB PO SCH (11:51)
--- NOTE | 2016-07-16 12:11 | PN ---
Subjective - Subjective Service Type: [id number] Hosp care 15 min low complexity Subjective: The patient is hostile and argumentative on interview, making sarcastic comments such as "Oh, I see. You want to keep me here until I'm social enough to go to your groups and behave in a way that you think is normal, right?" She refused her EEG again this AM and was sleeping in her room when found. She complains of hypersomnolence and hyperphagia from olanzapine but is otherwise tolerating it well. Her brother Gabriel ([phone]) could not be reached for collateral. The patient appears paranoid, believing I'm keeping her in the hospital to punish her. She denies SI or HI. Objective - Appearance Appearance: Well Developed/Nourished Dysmorphic Features: No Hygiene: Normal Grooming: Well Kept - Behavior Psychomotor Activities: Normal Exhibits Abnormal Movement: No - Attitude and Relatedness Attitude and Relatedness: Hostile Eye Contact: Good - Speech Quality: Unpressured Latencies: Normal Quantity: Appropriate - Mood Patient's Decription of Mood: "Angry" - Affect Observed Affect: Tense Affect Consistent with: Dysphoria - Thought Process Patient's Thought Process: Circumstantial Thought Content: Yes Paranoid Ideation, No Passive Wish, No Suicidal Planning, No Homicidal Ideation - Sensorium Experiencing Hallucinations: No, Sensorium is Clear Type of Hallucinations: Visual: No, Auditory: No, Command: No - Level of Consciousness Level of Consciousness: Agitated Orientation: Yes Intact, Yes Orientated to Time, Yes Orientated to Place, Yes Orientated to Person - Impulse Control Impulse Control: Poor - Insight and Judgement Insight and Judgement: Impaired - Group Participation Particating in Group Activities: No - Medication Management Medication Management Adherence: Yes Assessment - Assessment Merits Inpatient Hospitalization: For Immediate Safety, For Stabilization Inpatient DSM-IV Dx: 1. Psychotic disorder, not otherwise specified. 2. Mood disorder, not otherwise specified. 3. Rule out chronic psychotic disorder. 4. Rule out undetected substance ingestion contributory to presentation with overtly psychotic symptoms. Clinical Impression: 26 y.o. single, [place] female with a history of psychosis transferred from the medical unit following an intentional overdose on medications who presents as paranoid, disorganized and psychotic. Plan - Plan Treatment Plan: Name: OTTO HARDING Birthdate: 1990 [id number] The patient is taking olanzapine 10mg PO qhs and appears better organized and less agitated than at admission. She has refused EEG to rule out seizure disorders. She likely has a chronic psychotic disorder and d/c planning will be important in terms of identifying supports in the community. Continue to await further stabilization. Continued Medication Management: Start Medication Medications: Current Medications Acetaminophen (Tylenol Tab*) 650 mg PO Q4H PRN PRN Reason: for pain; or Temp >101 F Last Admin: 07/15/16 16:17 Dose: 650 mg Al Hydrox/Mg Hydrox/Simethicone (Maalox Plus*) 30 ml PO Q4H PRN PRN Reason: INDIGESTION Docusate Sodium (Colace Cap*) 100 mg PO DAILY PRN PRN Reason: CONSTIPATION Last Admin: 07/13/16 21:40 Dose: 100 mg Ibuprofen (Motrin Tab*) 400 mg PO Q6H PRN PRN Reason: PAIN Last Admin: 07/15/16 14:16 Dose: 400 mg Multivitamins (Theragran Tab*) 1 tab PO DAILY [facility] Last Admin: 07/16/16 11:51 Dose: Not Given Nicotine (Nicotine Inhaler*) 10 mg INH Q2H PRN PRN Reason: CRAVING Last Admin: 07/11/16 22:46 Dose: 10 mg Olanzapine (Zyprexa * Tab Odt) 5 mg PO Q6H PRN PRN Reason: AGITATION Last Admin: 07/15/16 14:16 Dose: 5 mg Olanzapine (Zyprexa Tab*) 10 mg PO BEDTIME [facility] Last Admin: 07/15/16 21:39 Dose: 10 mg - Discharge Plan Discharge Plan: Inpatient Hospitalization
[2016-07-16] MEDS: OLANzapine TAB*ODT* 5 MG PO PRN (14:21)
[2016-07-16] MEDS: Al Hydrox/Mg Hydrox/Simet LIQ* 30 ML UDC PO PRN (19:37)
[2016-07-16] MEDS: OLANzapine TAB* 5 MG PO SCH (20:20)
[2016-07-16] MEDS: Docusate CAP* 100 MG PO PRN (20:21)
[2016-07-17 08:02] LABS: HDL Cholesterol 33.6 mg/dL
[2016-07-17] MEDS: Ibuprofen TAB* 400 MG PO PRN (08:35)
[2016-07-17] MEDS: Vitamin THERAPEUTIC TAB PO SCH (08:35)
--- NOTE | 2016-07-17 11:12 | PN ---
[facility]: Group Therapy Note - Service Type Service Type: [id number] Group Psychotherapy - Cognitive Behavioral Group Therapy ( CBT):Patient was attentive and participatory in CBT programming this morning, and remained in good behavioral control. Patient expressed positive insights regarding relevant treatment interventions and goals.
[2016-07-17] MEDS: Nicotine Inhaler* 10 MG AMP INH PRN (13:20)
--- NOTE | 2016-07-17 13:54 | PN ---
Subjective - Subjective Service Type: 87938 Hosp care 25 min moderate complexity Subjective: Otto has been more active and more present on the milieu since yesterday. 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 She indicates that she cannot remember the names of her past psychiatric medications , but that she experience weight gain and hair-loss that made her discontinue them. I received a message from her outpatient psychiatric nurse practitioner, Tariq Guevara ([phone]), who indicated that they have worked together since November,, but the patient has been progressively more psychotic and needs a higher level of care. At one point Otto becomes tearful when telling me about her eyesight being poor. Objective - Appearance Appearance: Well Developed/Nourished Dysmorphic Features: No Hygiene: Normal Grooming: Fairly Well Kept - Behavior Psychomotor Activities: Normal Exhibits Abnormal Movement: No - Attitude and Relatedness Attitude and Relatedness: Guarded Eye Contact: Fair - Speech Quality: Unpressured Latencies: Normal Quantity: Appropriate - Mood Patient's Decription of Mood: "Fine" - Affect Observed Affect: Tearful Affect Consistent with: Dysphoria - Thought Process Patient's Thought Process: Circumstantial Thought Content: Yes Paranoid Ideation, No Passive Wish, No Suicidal Planning, No Homicidal Ideation - Sensorium Experiencing Hallucinations: No, Sensorium is Clear Type of Hallucinations: Visual: No, Auditory: No, Command: No - Level of Consciousness Level of Consciousness: Alert Orientation: Yes Intact, Yes Orientated to Time, Yes Orientated to Place, Yes Orientated to Person - Impulse Control Impulse Control: Poor - Insight and Judgement Insight and Judgement: Impaired - Group Participation Particating in Group Activities: Yes - Medication Management Medication Management Adherence: Yes Assessment - Assessment Merits Inpatient Hospitalization: For Immediate Safety, For Stabilization Inpatient DSM-IV Dx: 1. Psychotic disorder, not otherwise specified. 2. Mood disorder, not otherwise specified. 3. Rule out chronic psychotic disorder. 4. Rule out undetected substance ingestion contributory to presentation with overtly psychotic symptoms. Clinical Impression: 26 y.o. single, [place] female with a history of psychosis transferred from the medical unit following an intentional overdose on medications who presents as paranoid, disorganized and psychotic. Plan - Plan Treatment Plan: Name: OTTO HARDING Birthdate: 1990 [id number] The patient is taking olanzapine 10mg PO qhs and appears better organized and less agitated than at admission. She has refused EEG to rule out seizure disorders. She likely has a chronic psychotic disorder and d/c planning will be important in terms of identifying supports in the community. Continue to await further stabilization. Continued Medication Management: Start Medication Medications: Current Medications Acetaminophen (Tylenol Tab*) 650 mg PO Q4H PRN PRN Reason: for pain; or Temp >101 F Last Admin: 07/15/16 16:17 Dose: 650 mg Al Hydrox/Mg Hydrox/Simethicone (Maalox Plus*) 30 ml PO Q4H PRN PRN Reason: INDIGESTION Last Admin: 07/16/16 19:37 Dose: 30 ml Docusate Sodium (Colace Cap*) 100 mg PO DAILY PRN PRN Reason: CONSTIPATION Last Admin: 07/16/16 20:21 Dose: 100 mg Ibuprofen (Motrin Tab*) 400 mg PO Q6H PRN PRN Reason: PAIN Last Admin: 07/17/16 08:35 Dose: 400 mg Multivitamins (Theragran Tab*) 1 tab PO DAILY [facility] Last Admin: 07/17/16 08:35 Dose: 1 tab Nicotine (Nicotine Inhaler*) 10 mg INH Q2H PRN PRN Reason: CRAVING Last Admin: 07/11/16 22:46 Dose: 10 mg Olanzapine (Zyprexa * Tab Odt) 5 mg PO Q6H PRN PRN Reason: AGITATION Last Admin: 07/16/16 14:21 Dose: 5 mg Olanzapine (Zyprexa Tab*) 10 mg PO BEDTIME [facility] Last Admin: 07/16/16 20:20 Dose: 10 mg - Discharge Plan Discharge Plan: Inpatient Hospitalization
[2016-07-17] MEDS: Nicotine PATCH 7 MG/24 HR* PATCH TRANSDERM SCH (14:16)
[2016-07-17] MEDS: OLANzapine TAB*ODT* 5 MG PO PRN (14:26)
[2016-07-17] MEDS: Nicotine Patch Removal NOTE FOLLOW UP SCH (21:32)
[2016-07-17] MEDS: OLANzapine TAB* 5 MG PO SCH (21:32)
[2016-07-18] MEDS: Nicotine PATCH 7 MG/24 HR* PATCH TRANSDERM SCH (09:44)
[2016-07-18] MEDS: Vitamin THERAPEUTIC TAB PO SCH (09:44)
[2016-07-18] MEDS: Al Hydrox/Mg Hydrox/Simet LIQ* 30 ML UDC PO PRN ×2 (09:45→17:53)
--- NOTE | 2016-07-18 11:06 | PN ---
MHU: Group Therapy Note - Service Type Service Type: [id number] Group Psychotherapy - Group Psychotherapy Note: Edyta presented with better hygiene this morning. She was conversational in group with staff and peers, engaging in coherent conversation.
--- NOTE | 2016-07-18 15:31 | PN ---
Subjective - Subjective Service Type: [id number] Hosp care 25 min moderate complexity Subjective: Otto is met, along with JOSE Pompa, for routine follow up. She is calm and cooperative and asks reasonable d/c planning related questions such as how the medication will affect her weight and blood glucose status and who she will follow up with in the community. She does express at least some interest in moving to [place] to be closer to her brother. Staff notes that she's less bizarre on the unit today. She denies SI or HI. Objective - Appearance Appearance: Well Developed/Nourished Dysmorphic Features: No Hygiene: Normal Grooming: Fairly Well Kept - Behavior Psychomotor Activities: Normal Exhibits Abnormal Movement: No - Attitude and Relatedness Attitude and Relatedness: Cooperative Eye Contact: Fair - Speech Quality: Unpressured Latencies: Normal Quantity: Appropriate - Mood Patient's Decription of Mood: "Okay" - Affect Observed Affect: Fair Affect Consistent with: Euthymia - Thought Process Patient's Thought Process: Coherent Thought Content: Yes Paranoid Ideation, No Passive Wish, No Suicidal Planning, No Homicidal Ideation - Sensorium Experiencing Hallucinations: No, Sensorium is Clear Type of Hallucinations: Visual: No, Auditory: No, Command: No - Level of Consciousness Level of Consciousness: Alert Orientation: Yes Intact, Yes Orientated to Time, Yes Orientated to Place, Yes Orientated to Person - Impulse Control Impulse Control: Tenuous - Insight and Judgement Insight and Judgement: Fair - Group Participation Particating in Group Activities: Yes - Medication Management Medication Management Adherence: Yes Assessment - Assessment Merits Inpatient Hospitalization: For Immediate Safety, For Stabilization Inpatient DSM-IV Dx: 1. Psychotic disorder, not otherwise specified. 2. Mood disorder, not otherwise specified. 3. Rule out chronic psychotic disorder. 4. Rule out undetected substance ingestion contributory to presentation with overtly psychotic symptoms. Clinical Impression: 26 y.o. single, [place] female with a history of psychosis transferred from the medical unit following an intentional overdose on medications who presents as paranoid, disorganized and psychotic. Plan - Plan Treatment Plan: Name: OTTO HARDING Birthdate: 1990 [id number] The patient is taking olanzapine 10mg PO qhs and appears better organized and less agitated than at admission. She has refused EEG to rule out seizure disorders. She likely has a chronic psychotic disorder and d/c planning will be important in terms of identifying supports in the community. Continue to await further stabilization. Continued Medication Management: Start Medication Medications: Current Medications Acetaminophen (Tylenol Tab*) 650 mg PO Q4H PRN PRN Reason: for pain; or Temp >101 F Last Admin: 07/15/16 16:17 Dose: 650 mg Al Hydrox/Mg Hydrox/Simethicone (Maalox Plus*) 30 ml PO Q4H PRN PRN Reason: INDIGESTION Last Admin: 07/18/16 09:45 Dose: 30 ml Docusate Sodium (Colace Cap*) 100 mg PO DAILY PRN PRN Reason: CONSTIPATION Last Admin: 07/16/16 20:21 Dose: 100 mg Ibuprofen (Motrin Tab*) 400 mg PO Q6H PRN PRN Reason: PAIN Last Admin: 07/17/16 08:35 Dose: 400 mg Multivitamins (Theragran Tab*) 1 tab PO DAILY [facility] Last Admin: 07/18/16 09:44 Dose: 1 tab Nicotine (Nicotine Inhaler*) 10 mg INH Q2H PRN PRN Reason: CRAVING Last Admin: 07/17/16 13:20 Dose: 10 mg Nicotine (Nicotine Patch 7 Mg/24 Hr*) 1 patch TRANSDERM DAILY [facility] Last Admin: 07/18/16 09:44 Dose: 1 patch Olanzapine (Zyprexa * Tab Odt) 5 mg PO Q6H PRN PRN Reason: AGITATION Last Admin: 07/17/16 14:26 Dose: 5 mg Olanzapine (Zyprexa Tab*) 10 mg PO BEDTIME [facility] Last Admin: 07/17/16 21:32 Dose: 10 mg Pharmacy Profile Note (Nicotine Patch Removal Note*) 1 note FOLLOW UP 2100 [facility] Last Admin: 07/17/16 21:32 Dose: 1 note - Discharge Plan Discharge Plan: Inpatient Hospitalization
[2016-07-18] MEDS: OLANzapine TAB* 5 MG PO SCH (20:05)
[2016-07-18] MEDS: Nicotine Patch Removal NOTE FOLLOW UP SCH (20:06)
[2016-07-19] MEDS: Vitamin THERAPEUTIC TAB PO SCH (08:20)
[2016-07-19] MEDS: Nicotine PATCH 7 MG/24 HR* PATCH TRANSDERM SCH (08:20)
[2016-07-19] MEDS: Al Hydrox/Mg Hydrox/Simet LIQ* 30 ML UDC PO PRN ×3 (09:48→19:36)
[2016-07-19] MEDS: Ibuprofen TAB* 400 MG PO PRN (13:16)
[2016-07-19] MEDS: Nicotine Inhaler* 10 MG AMP INH PRN (14:02)
[2016-07-19] MEDS: Docusate CAP* 100 MG PO PRN (14:03)
[2016-07-19] MEDS: OLANzapine TAB*ODT* 5 MG PO PRN (19:36)
[2016-07-19] MEDS: OLANzapine TAB* 5 MG PO SCH (22:06)
[2016-07-19] MEDS: Nicotine Patch Removal NOTE FOLLOW UP SCH (22:07)
[2016-07-20] MEDS: Vitamin THERAPEUTIC TAB PO SCH (10:44)
[2016-07-20] MEDS: Nicotine PATCH 7 MG/24 HR* PATCH TRANSDERM SCH (10:44)
[2016-07-20] MEDS: OLANzapine TAB*ODT* 5 MG PO PRN (13:23)
[2016-07-20] MEDS: Al Hydrox/Mg Hydrox/Simet LIQ* 30 ML UDC PO PRN (21:15)
[2016-07-20] MEDS: OLANzapine TAB* 5 MG PO SCH (21:15)
[2016-07-20] MEDS: Nicotine Patch Removal NOTE FOLLOW UP SCH (21:16)
[2016-07-21] MEDS: Vitamin THERAPEUTIC TAB PO SCH (09:34)
[2016-07-21] MEDS: Nicotine PATCH 7 MG/24 HR* PATCH TRANSDERM SCH (09:34)
[2016-07-21] MEDS: Docusate CAP* 100 MG PO PRN (09:36)
[2016-07-21] MEDS: Al Hydrox/Mg Hydrox/Simet LIQ* 30 ML UDC PO PRN ×2 (12:53→17:57)
--- NOTE | 2016-07-21 13:37 | PN ---
MHU: Group Therapy Note - Service Type Service Type: [id number] Group Psychotherapy - Cognitive Behavioral Group Therapy ( CBT):Patient was attentive and participatory in CBT programming this morning, and remained in good behavioral control. Patient expressed positive insights regarding relevant treatment interventions and goals.
--- NOTE | 2016-07-21 14:10 | PN ---
Subjective - Subjective Service Type: 33397 Hosp care 15 min low complexity Subjective: The patient is calm and cooperative. Is reality-focused on examination, asking appropriate questions about discharge aftercare. No acute complaints. Very sedated by meds but attending groups. Objective - Appearance Appearance: Well Developed/Nourished Dysmorphic Features: No Hygiene: Normal Grooming: Well Kept - Behavior Psychomotor Activities: Normal Exhibits Abnormal Movement: No - Attitude and Relatedness Attitude and Relatedness: Cooperative Eye Contact: Fair - Speech Quality: Unpressured Latencies: Normal Quantity: Appropriate - Mood Patient's Decription of Mood: "Good" - Affect Observed Affect: Fair Affect Consistent with: Euthymia - Thought Process Patient's Thought Process: Coherent Thought Content: No Passive Wish, No Suicidal Planning, No Homicidal Ideation, No Paranoid Ideation - Sensorium Experiencing Hallucinations: No, Sensorium is Clear Type of Hallucinations: Visual: No, Auditory: No, Command: No - Level of Consciousness Level of Consciousness: Alert Orientation: Yes Intact, Yes Orientated to Time, Yes Orientated to Place, Yes Orientated to Person - Impulse Control Impulse Control: Tenuous - Insight and Judgement Insight and Judgement: Fair - Group Participation Particating in Group Activities: Yes - Medication Management Medication Management Adherence: Yes Assessment - Assessment Merits Inpatient Hospitalization: Consolidate Improvements, For Discharge Planning Inpatient DSM-IV Dx: 1. Psychotic disorder, not otherwise specified. 2. Mood disorder, not otherwise specified. 3. Rule out chronic psychotic disorder. 4. Rule out undetected substance ingestion contributory to presentation with overtly psychotic symptoms. Clinical Impression: 26 y.o. single, [place] female with a history of psychosis transferred from the medical unit following an intentional overdose on medications who presents as paranoid, disorganized and psychotic. Plan - Plan Treatment Plan: Name: OTTO HARDING Birthdate: 1990 [id number] The patient is taking olanzapine 10mg PO qhs and continues to improve. We will reduce her observation settings and see if she can tolerate this in preparation for possible d/c in the middle of this week. Continued Medication Management: Start Medication Medications: Current Medications Acetaminophen (Tylenol Tab*) 650 mg PO Q4H PRN PRN Reason: for pain; or Temp >101 F Last Admin: 07/15/16 16:17 Dose: 650 mg Al Hydrox/Mg Hydrox/Simethicone (Maalox Plus*) 30 ml PO Q4H PRN PRN Reason: INDIGESTION Last Admin: 07/21/16 12:53 Dose: 30 ml Docusate Sodium (Colace Cap*) 100 mg PO DAILY PRN PRN Reason: CONSTIPATION Last Admin: 07/21/16 09:36 Dose: 100 mg Ibuprofen (Motrin Tab*) 400 mg PO Q6H PRN PRN Reason: PAIN Last Admin: 07/19/16 13:16 Dose: 400 mg Multivitamins (Theragran Tab*) 1 tab PO DAILY [facility] Last Admin: 07/21/16 09:34 Dose: 1 tab Nicotine (Nicotine Inhaler*) 10 mg INH Q2H PRN PRN Reason: CRAVING Last Admin: 07/19/16 14:02 Dose: 10 mg Nicotine (Nicotine Patch 7 Mg/24 Hr*) 1 patch TRANSDERM DAILY [facility] Last Admin: 07/21/16 09:34 Dose: 1 patch Olanzapine (Zyprexa * Tab Odt) 5 mg PO Q6H PRN PRN Reason: AGITATION Last Admin: 07/20/16 13:23 Dose: 5 mg Olanzapine (Zyprexa Tab*) 10 mg PO BEDTIME [facility] Last Admin: 07/20/16 21:15 Dose: 10 mg Pharmacy Profile Note (Nicotine Patch Removal Note*) 1 note FOLLOW UP 2100 [facility] Last Admin: 07/20/16 21:16 Dose: Not Given - Discharge Plan Discharge Plan: Inpatient Hospitalization
[2016-07-21] MEDS: OLANzapine TAB* 5 MG PO SCH (20:06)
[2016-07-21] MEDS: Nicotine Patch Removal NOTE FOLLOW UP SCH (20:07)
[2016-07-22 08:06] VITALS: BP 90/51
[2016-07-22] MEDS: Nicotine PATCH 7 MG/24 HR* PATCH TRANSDERM SCH (08:36)
[2016-07-22] MEDS: Vitamin THERAPEUTIC TAB PO SCH (08:38)
--- NOTE | 2016-07-22 11:39 | PN ---
MHU: Group Therapy Note - Service Type Service Type: [id number] Group Psychotherapy - Cognitive Behavioral Group Therapy ( CBT):Patient was attentive and participatory in CBT programming this morning, and remained in good behavioral control. Patient expressed positive insights regarding relevant treatment interventions and goals.
--- NOTE | 2016-07-22 13:24 | PN ---
Subjective - Subjective Service Type: 64044 Hosp care 15 min low complexity Subjective: The patient remains calm, cooperative and reality-focussed. She has been active on the milieu and working with on d/c planning. As per notes, her brother, Torrey, feels she is back to her baseline. She denies SI or HI. Objective - Appearance Appearance: Well Developed/Nourished Dysmorphic Features: No Hygiene: Normal Grooming: Fairly Well Kept - Behavior Psychomotor Activities: Normal Exhibits Abnormal Movement: No - Attitude and Relatedness Attitude and Relatedness: Cooperative Eye Contact: Good - Speech Quality: Unpressured Latencies: Normal Quantity: Appropriate - Mood Patient's Decription of Mood: "Fine" - Affect Observed Affect: Good Affect Consistent with: Euthymia - Thought Process Patient's Thought Process: Coherent Thought Content: No Passive Wish, No Suicidal Planning, No Homicidal Ideation, No Paranoid Ideation - Sensorium Experiencing Hallucinations: No, Sensorium is Clear Type of Hallucinations: Visual: No, Auditory: No, Command: No - Level of Consciousness Level of Consciousness: Alert Orientation: Yes Intact, Yes Orientated to Time, Yes Orientated to Place, Yes Orientated to Person - Impulse Control Impulse Control: Intact - Insight and Judgement Insight and Judgement: Good - Group Participation Particating in Group Activities: Yes - Medication Management Medication Management Adherence: Yes Assessment - Assessment Merits Inpatient Hospitalization: Consolidate Improvements, Pending Safe DC Plan Inpatient DSM-IV Dx: 1. Psychotic disorder, not otherwise specified. 2. Mood disorder, not otherwise specified. 3. Rule out chronic psychotic disorder. 4. Rule out undetected substance ingestion contributory to presentation with overtly psychotic symptoms. Clinical Impression: 26 y.o. single, [place] female with a history of psychosis transferred from the medical unit following an intentional overdose on medications who presents as paranoid, disorganized and psychotic. Plan - Plan Treatment Plan: Name: OTTO HARDING Birthdate: 1990 [id number] The patient is taking olanzapine 10mg PO qhs and continues to improve. Will arrange follow up appointments and target tomorrow (07/23) for discharge. Continued Medication Management: Start Medication Medications: Current Medications Acetaminophen (Tylenol Tab*) 650 mg PO Q4H PRN PRN Reason: for pain; or Temp >101 F Last Admin: 07/15/16 16:17 Dose: 650 mg Al Hydrox/Mg Hydrox/Simethicone (Maalox Plus*) 30 ml PO Q4H PRN PRN Reason: INDIGESTION Last Admin: 07/21/16 17:57 Dose: 30 ml Docusate Sodium (Colace Cap*) 100 mg PO DAILY PRN PRN Reason: CONSTIPATION Last Admin: 07/21/16 09:36 Dose: 100 mg Ibuprofen (Motrin Tab*) 400 mg PO Q6H PRN PRN Reason: PAIN Last Admin: 07/19/16 13:16 Dose: 400 mg Multivitamins (Theragran Tab*) 1 tab PO DAILY [facility] Last Admin: 07/22/16 08:38 Dose: 1 tab Nicotine (Nicotine Inhaler*) 10 mg INH Q2H PRN PRN Reason: CRAVING Last Admin: 07/19/16 14:02 Dose: 10 mg Nicotine (Nicotine Patch 7 Mg/24 Hr*) 1 patch TRANSDERM DAILY [facility] Last Admin: 07/22/16 08:36 Dose: 1 patch Olanzapine (Zyprexa * Tab Odt) 5 mg PO Q6H PRN PRN Reason: AGITATION Last Admin: 07/20/16 13:23 Dose: 5 mg Olanzapine (Zyprexa Tab*) 10 mg PO BEDTIME [facility] Last Admin: 07/21/16 20:06 Dose: 10 mg Pharmacy Profile Note (Nicotine Patch Removal Note*) 1 note FOLLOW UP [address] [facility] Last Admin: 07/21/16 20:07 Dose: 1 note - Discharge Plan Discharge Plan: Outpatient [facility]
[2016-07-22] MEDS: OLANzapine TAB* 5 MG PO SCH (20:06)
[2016-07-22] MEDS: Nicotine Patch Removal NOTE FOLLOW UP SCH (21:09)
[2016-07-23] MEDS: Nicotine Inhaler* 10 MG AMP INH PRN (08:35)
[2016-07-23] MEDS: Vitamin THERAPEUTIC TAB PO SCH (08:35)
[2016-07-23] MEDS: Nicotine PATCH 7 MG/24 HR* PATCH TRANSDERM SCH (08:35)
--- NOTE | 2016-07-23 18:27 | DS ---
DISCHARGE SUMMARY: DATE OF ADMISSION: 07/09/16 DATE OF DISCHARGE: 07/23/16 DISCHARGE DIAGNOSES: As follows: Brook I: Unspecified psychotic disorder. Rule out bipolar depression, severe with psychotic features versus schizophrenia. Brook II: Deferred. Brook III: Chronic constipation. Brook IV: Moderate primary support and academic stressors. Brook V: At the time of admission was 30 and at the time of discharge is 60. CONDITION AT THE TIME OF DISCHARGE: Improved. The patient has intact reality testing. She is calm and cooperative. She has been denying suicidal or homicidal ideations throughout this admission. She has been active in the milieu setting, socializing with pears and participating fully in unit activities. Furthermore, she has been safe on all checks. We have had extensive telephone conversations with her family, most notably her brother Torrey who indicates that he has been consistently speaking with the patient over the phone from [place], [place], where he resides and he feels that she is back to her psychiatric baseline. The patient is future oriented, indicating that she would like to pursue a medical deferral from [facility] for the remainder of the summer until she can get her mental health improved enough to return to school. She is agreeable with outpatient treatment in the community setting. MENTAL STATUS EXAM: At the time of admission, the patient is a young [place]- [place] female who is clean and well groomed. She is calm, cooperative, expressive. Speech has a normal rate, tone and volume. Mood is euthymic with a full affect. Thought process is linear and goal directed. Thought content is significant for her desire to be discharged from the hospital so that she can work things out with [facility] to take a withdrawal for the summer for medical reasons. She denies suicidal or homicidal ideations. She denies auditory or visual hallucinations. Insight and judgment are fair given her willingness to follow up with outpatient treatment. Cognitively she is awake and alert with what would appear to be an average intellect. DISCHARGE INSTRUCTIONS: To the patient are as follows: A. Medications: She is taking olanzapine 10 mg p.o. q. nightly. She is also taking Colace 100 mg once daily as a p.r.n. for constipation. B. Diet: Regular. C. Activities: As tolerated. The patient is strongly encouraged to abstain from tobacco products. However, she is declining the continuation of nicotine replacement therapies, expressing her preference at this time to continue smoking cigarettes. There are no diagnostic studies pending at the time of discharge. D. Followup Care: The patient will be following up at the [facility] and will receive both psychotherapy and med management. Her intake is within 1 week of discharge. HOSPITAL COURSE: As follows: A. Reason for Admission: The patient is a 26-year-old [place] female who was brought to the emergency department following an overdose on Flexeril, Ativan and Ritalin in what was apparently an attempt to kill herself. Initially , she was complaining of chest pain and abdominal pain but had to be sent to one of the telemetry units under the advisement of Poison Control due to tachycardia and she required medical stabilization on the medical unit prior to her transfer to the behavioral science unit. When she was first interviewed, she made the statement "I am here because I took too much of my medication and I tried to kill myself." She reports that she was not depressed, but mostly angry. She states that she attempted because she was bored and upset and her anger was directed at her former boyfriend secondary to relationship issues. Characteristic of most of her responses to questions, she gave equivocal reports of anhedonia, stating "some ways yes, some ways no" and then clarified it that she was still interested in writing music but no longer interested in camping or sailing. She did complain of some worthless and guilty feelings for the past 4 to 5 months and stating that she was oversleeping to the tune of 12 to 14 hours per day while also having low energy. She reports having separation anxiety from her boyfriend and reported that her appetite was highly variable, but she did fear that she was gaining weight. She did admit to difficulties at times with concentration and decision making. When asked to elaborate on her suicidality, she claimed that she did not still want to be , but was still having some passive suicidal ideations. She denied having a gun at home. B. Psychiatric treatment rendered: The patient was admitted to the adult behavioral health unit under the service of Dr. Daron Su and placed on q.15 - minute checks due to bizarre and psychotic behavior. Staff reports that she was difficult to manage on our unit, initially wearing ripped scrubs and revealing her private areas to male staff at times. She was disorganized and uncooperative and requested discharge by signing documents to go to court. Her care was taken over by Dr. Andre Vargas on 07/15/16. At that time she was argumentative and uncooperative. She seemed to view me in a paranoid and hostile way, indicating that when I entered her room she felt that I meant to do her harm. I was able to reach her brother Torrey who was a dentist who has just moved to [place], [place], and he was concerned that over the phone initially she was sounding very paranoid and this was not her baseline at that point. Despite this, the patient continued to be compliant with olanzapine. She did complain of some residual daytime sedation, but other than this, the medication was well tolerated and she started gradually improving. At one time of the hospitalization, she started becoming more cooperative with me and more revealing about her history. 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 Apparently, she has been on numerous antipsychotic and mood stabilizing drugs in the past; however, she states that several of them caused weight gain and one in particular which she could not remember, caused some of her hair to grow thinner and fall out. Despite this, she tolerated olanzapine well and seemed agreeable with continuing this. I was able to get back in touch with her brother who indicated that she was back to her baseline. She allowed social work to open a line of communication with the [facility] in order for her to officially withdraw until she can get her mental health improved. I also had some contact with her nurse practitioner, Pierce Pritchard, who indicated that the patient had started to become psychotic several months ago and that that clinician was no longer comfortable working with her. For these reasons, we decided to refer her to [facility] and the patient is very much in agreement with this, feeling that she needs the higher level of service that they provide. The patient did receive an MRI of her brain; however , she refused an EEG, but otherwise it was felt that her neurological workup was negative for organic brain disease. I am feeling at this point that the most likely diagnosis is bipolar depression, which has been severe with psychotic features and the patient states that she will consider talking to her outpatient psychiatrist about initiating a mood stabilizer. At this time, the patient is calm, cooperative, participating in all group programming and it is felt that she can be adequately treated in a less restrictive setting. Her family is in support of the discharge plan. [id number]/[facility] #: [id number] KEYLA
== END 2016-07-23 14:15 | disposition home or self-care (01) | DRG 885 ==
LOC: BSU 07:49 → UNDOADMIN 07:49 → BSU 09:10
PROVIDERS: ADMIT Internal Medicine; ATTEND Psychiatry & Neurology Psychiatry
PROC: GZHZZZZ Group Psychotherapy (ICD-10-PCS; principal; 2016-07-17)
DX: F29 Unspecified psychosis not due to a substance or known physiological condition (principal); F31.5 Bipolar disorder, current episode depressed, severe, with psychotic features; F20.9 Schizophrenia, unspecified; K59.09 Other constipation; F90.9 Attention-deficit hyperactivity disorder, unspecified type; F17.210 Nicotine dependence, cigarettes, uncomplicated; Z81.8 Family history of other mental and behavioral disorders; Z91.030 Bee allergy status; Z85.89 Personal history of malignant neoplasm of other organs and systems
CPT/HCPCS: 36415; 70551; 80061; 83036; 84146; 84439; 90853; 99222; 99231; 99232; 99238; A9270-GY; J1200; J1630; J2060

== ENCOUNTER 2017-04-01 18:51 | Inpatient (IN) | payer OTHER ==
[2017-04-01 20:21] LABS: Urine Appearance Cloudy; Urine Blood 2+ (Negative); Urine Color Yellow; Urine Ketones 1+ (Negative); Urine Protein Negative (Negative); Urine Specific Gravity 1.017 (1.010-1.030); Urine Urobilinogen Negative (Negative)
[2017-04-01 20:32] LABS: ABS Basophils 0.1 10^3/ul (0-0.2); ABS Eosinophils 0 10^3/ul (0-0.6); ABS Lymphocytes 1.3 10^3/ul (1.0-4.8); ABS Monocytes 0.4 10^3/ul (0-0.8); ABS Neutrophils 7.2 10^3/ul (1.5-7.7); ABS Nucleated RBC 0 10^3/ul; Eosinophil % 0.5 % (0-6); Hematocrit 40 % (35-47); Hemoglobin 13.5 g/dl (12.0-16.0); Lymphocyte % 14.2 % (25-47); Mean Corpuscular HGB Conc 34 g/dl (31-36); Mean Corpuscular Hemoglobin 31 pg (27-31); Mean Corpuscular Volume 92 fL (80-97); Mean Platelet Volume 8 um3 (7.4-10.4); Nucleated Red Blood Cells % 0; Platelet Count 288 10^3/ul (150-450); Red Blood Count 4.29 10^6/ul (4.0-5.4); Red Cell Distribution Width 13 % (10.5-15)
[2017-04-01 20:49] LABS: EGFR Non-African American 110.5 (>60)
[2017-04-01] MEDS ORDERED: diPHENhydraMINE IV* 50 MG/ML 1 ml VIAL (BENADRYL) IM ONE (22:05)
[2017-04-01] MEDS ORDERED: LORazepam INJ* 2 MG/ML 1 ML VIAL IM ONE (22:05)
[2017-04-01] MEDS ORDERED: Haloperidol INJ IV/IM* 5 MG/ML AMP IM ONE (22:05)
[2017-04-01] MEDS ORDERED: Haloperidol INJ IV/IM* 5 MG/ML AMP ONE (22:13)
[2017-04-01] MEDS ORDERED: LORazepam INJ* 2 MG/ML 1 ML VIAL ONE (22:13)
[2017-04-01] MEDS ORDERED: diPHENhydraMINE IV* 50 MG/ML 1 ml VIAL (BENADRYL) ONE (22:13)
--- NOTE | 2017-04-02 08:26 | ED ---
Progress - Consult/PCP Time Called: 22:34 Course/Dx - Course Course Of Treatment: ADMIT MHU
[2017-04-02] MEDS ORDERED: Acetaminophen TAB* 325 MG PO PRN (08:31)
[2017-04-02] MEDS ORDERED: ARIPiprazole TAB* 5 MG PO SCH (09:00)
[2017-04-02] MEDS ORDERED: lamoTRIgine TAB(*) 25 MG PO SCH (09:00)
--- NOTE | 2017-04-02 11:15 | ED ---
Maia Dhaliwal Gabriel, scribed for Jose Raul Banks MD on 04/01/17 at 2005 . Psychiatric Complaint - HPI Summary HPI Summary: This patient is a 26 year old [facility] The patient states she was at home and was terrified of the lights and the voices. Additionally she states she wants to . Pt is not so much responding to questions as she is just spouting random sentences. She pretended to fall asleep and snore then seconds later woke up and said this is not a drill this is a safety concern. LEVEL 5 CAVEAT: HPI limited due to the patient not seeming to understand questions and not responding appropriately. - History Of Current Complaint Chief Complaint: EDMentalHealth Time Seen by Provider: 04/01/17 19:07 Hx Obtained From: Patient Onset/Duration: Still Present Timing: Constant Severity Initially: Severe Character: Manic Related History: Positive For: Prior Psychiatric Issues Has Suicidal: Reports: Thoughts - Allergies/Home Medications Allergies/Adverse Reactions: Allergies Allergy/AdvReac Type Severity Reaction Status Date / Time No Known Allergies Allergy Verified 07/10/16 18:17 PMH/Surg Hx/FS Hx/Imm Hx Cardiovascular History: Denies: Hx Pacemaker/ICD Respiratory History: Reports: Hx Asthma - as a child History: Comment Only: Other Problems/Disorders - UTIs Sensory History: Reports: Hx Contacts or Glasses Denies: Hx Hearing Aid Opthamlomology History: Reports: Hx Contacts or Glasses Neurological History: Reports: Hx Migraine Psychiatric History: Reports: Hx Anxiety, Hx Attention Deficit Hyperactivity Disorder, Hx Depression, Hx Post Traumatic Stress Disorder, Hx Inpatient Treatment, Hx Community Mental Health Tx Denies: Hx Panic Disorder - Surgical History Surgery Procedure, Year, and Place: tonsillectomy, pt states she was "7 or 8" Infectious Disease History: No Infectious Disease History: Denies: Traveled Outside the [place] in Last 30 Days - Family History Known Family History: Positive: Other - Mental illness (diffuse) - Social History Alcohol Use: unknown Alcohol Amount: 2-3 glasses today Substance Use Type: Reports: Other Substance Use Comment - Amount & Last Used: unknown Smoking Status (MU): Unknown if Ever Smoked Type: Cigarettes Amount Used/How Often: less than half a pack Have You Smoked in the Last Year: Yes - Additional Comments History Additional Comments: LEVEL 5 CAVEAT: history limited due to the patient not seeming to understand questions and not responding appropriately. Review of Systems - ROS Summary Review of Systems Summary: LEVEL 5 CAVEAT: ROS limited due to the patient not seeming to understand questions and not responding appropriately. Positive: Other - SI All Other Systems Reviewed And Are Negative: No Physical Exam - Summary Physical Exam Summary: Appearance: The patient is well-nourished Skin: The skin is warm and dry and skin color reflects adequate perfusion. Pt has dirt on her feet HEENT: The head is normocephalic and atraumatic. The conjunctivae are clear and without drainage. Nares are patent and without drainage. Neck: the neck is supple with full range of motion and non-tender. Respiratory: Chest is non-tender. Cardiovascular: Heart is regular rate and rhythm. Abdomen: The abdomen is soft and non-tender. . Musculoskeletal: Extremities are non-tender with full range of motion. There is no peripheral edema Neurological: Patient is alert . The patient has symmetrical motor strength in all four extremities. Cranial nerves are grossly intact. Deep tendon reflexes are symmetrical and equal in all four extremities. Psychiatric: The patient is not cooperative to the exam. At times it appears she is responding to internal stimuli. Triage Information Reviewed: Yes Vital Signs On Initial Exam: Initial Vitals Temp Pulse Resp BP Pulse Ox 98.8 F 91 16 138/78 100 04/01/17 19:08 04/01/17 19:08 04/01/17 19:08 04/01/17 19:08 04/01/17 19:08 Vital Signs Reviewed: Yes Completion Of Physical Exam Limited Due To: Level 5 Diagnostics - Vital Signs Vital Signs Temp Pulse Resp BP Pulse Ox 04/01/17 19:08 98.8 F 91 16 138/78 100 - Laboratory Lab Results: Lab Results 04/01/17 04/01/17 04/01/17 Range/Units 20:05 20:25 20:25 WBC 9.0 (3.5-10.8) 10^3/ul RBC 4.29 (4.0-5.4) 10^6/ul Hgb 13.5 (12.0-16.0) g/dl Hct 40 (35-47) % MCV 92 (80-97) fL MCH 31 (27-31) pg MCHC 34 (31-36) g/dl RDW 13 (10.5-15) % Plt Count 288 (150-450) 10^3/ul MPV 8 (7.4-10.4) um3 Neut % (Auto) 79.6 (38-83) % Lymph % (Auto) 14.2 L (25-47) % [place] % (Auto) 5.0 (1-9) % Eos % (Auto) 0.5 (0-6) % Baso % (Auto) 0.7 (0-2) % Absolute Neuts (auto) 7.2 (1.5-7.7) 10^3/ul Absolute Lymphs (auto) 1.3 (1.0-4.8) 10^3/ul Absolute Monos (auto) 0.4 (0-0.8) 10^3/ul Absolute Eos (auto) 0 (0-0.6) 10^3/ul Absolute Basos (auto) 0.1 (0-0.2) 10^3/ul Absolute Nucleated RBC 0 10^3/ul Nucleated RBC % 0 Sodium 138 (133-145) mmol/L Potassium 3.6 (3.5-5.0) mmol/L Chloride 105 (101-111) mmol/L Carbon Dioxide 26 (22-32) mmol/L Anion Gap 7 (2-11) mmol/L BUN 11 (6-24) mg/dL Creatinine 0.64 (0.51-0.95) mg/dL Est GFR ( Amer) 142.1 (>60) Est GFR (Non-Af Amer) 110.5 (>60) BUN/Creatinine Ratio 17.2 (8-20) Glucose 94 (70-100) mg/dL Calcium 9.7 (8.6-10.3) mg/dL Total Bilirubin 0.90 (0.2-1.0) mg/dL AST 12 L (13-39) U/L ALT 10 (7-52) U/L Alkaline Phosphatase 32 L (34-104) U/L Total Protein 7.2 (6.4-8.9) g/dL Albumin 4.7 (3.2-5.2) g/dL Globulin 2.5 (2-4) g/dL Albumin/Globulin Ratio 1.9 (1-3) TSH 1.56 (0.34-5.60) mcIU/mL Beta HCG, Quant < 0.60 mIU/mL Urine Color Yellow Urine Appearance Cloudy Urine pH 6.0 (5-9) Ur Specific [place] 1.017 (1.010-1.030) Urine Protein Negative (Negative) Urine Ketones 1+ H (Negative) Urine Blood 2+ H (Negative) Urine Nitrate Negative (Negative) Urine Bilirubin Negative (Negative) Urine Urobilinogen Negative (Negative) Ur Leukocyte Esterase 1+ H (Negative) Urine WBC (Auto) Trace(0-5/hpf) (Absent) Urine RBC (Auto) 3+(>10/hpf) H (Absent) Ur Squamous Epith Cells Present H (Absent) Urine Bacteria 1+ H (Absent) Urine Glucose Negative (Negative) Urine Ascorbic Acid * H (Negative) Salicylates < 2.50 (<30) mg/dL Urine Opiates Screen (None Detect) Acetaminophen < 15 mcg/mL Ur Barbiturates Screen (None Detect) Ur Phencyclidine Scrn (None Detect) Ur Amphetamines Screen (None Detect) U Benzodiazepines Scrn (None Detect) Urine Cocaine Screen (None Detect) U Cannabinoids Screen (None Detect) Serum Alcohol < 10 (<10) mg/dL 04/01/17 Range/Units 21:49 WBC (3.5-10.8) 10^3/ul RBC (4.0-5.4) 10^6/ul Hgb (12.0-16.0) g/dl Hct (35-47) % MCV (80-97) fL MCH (27-31) pg MCHC (31-36) g/dl RDW (10.5-15) % Plt Count (150-450) 10^3/ul MPV (7.4-10.4) um3 Neut % (Auto) (38-83) % Lymph % (Auto) (25-47) % [place] % (Auto) (1-9) % Eos % (Auto) (0-6) % Baso % (Auto) (0-2) % Absolute Neuts (auto) (1.5-7.7) 10^3/ul Absolute Lymphs (auto) (1.0-4.8) 10^3/ul Absolute Monos (auto) (0-0.8) 10^3/ul Absolute Eos (auto) (0-0.6) 10^3/ul Absolute Basos (auto) (0-0.2) 10^3/ul Absolute Nucleated RBC 10^3/ul Nucleated RBC % Sodium (133-145) mmol/L Potassium (3.5-5.0) mmol/L Chloride (101-111) mmol/L Carbon Dioxide (22-32) mmol/L Anion Gap (2-11) mmol/L BUN (6-24) mg/dL Creatinine (0.51-0.95) mg/dL Est GFR ( Amer) (>60) Est GFR (Non-Af Amer) (>60) BUN/Creatinine Ratio (8-20) Glucose (70-100) mg/dL Calcium (8.6-10.3) mg/dL Total Bilirubin (0.2-1.0) mg/dL AST (13-39) U/L ALT (7-52) U/L Alkaline Phosphatase (34-104) U/L Total Protein (6.4-8.9) g/dL Albumin (3.2-5.2) g/dL Globulin (2-4) g/dL Albumin/Globulin Ratio (1-3) TSH (0.34-5.60) mcIU/mL Beta HCG, Quant mIU/mL Urine Color Urine Appearance Urine pH (5-9) Ur Specific [place] (1.010-1.030) Urine Protein (Negative) Urine Ketones (Negative) Urine Blood (Negative) Urine Nitrate (Negative) Urine Bilirubin (Negative) Urine Urobilinogen (Negative) Ur Leukocyte Esterase (Negative) Urine WBC (Auto) (Absent) Urine RBC (Auto) (Absent) Ur Squamous Epith Cells (Absent) Urine Bacteria (Absent) Urine Glucose (Negative) Urine Ascorbic Acid (Negative) Salicylates (<30) mg/dL Urine Opiates Screen None detected (None Detect) Acetaminophen mcg/mL Ur Barbiturates Screen None detected (None Detect) Ur Phencyclidine Scrn None detected (None Detect) Ur Amphetamines Screen None detected (None Detect) U Benzodiazepines Scrn None detected (None Detect) Urine Cocaine Screen None detected (None Detect) U Cannabinoids Screen None detected (None Detect) Serum Alcohol (<10) mg/dL Result Diagrams: 04/01/17 20:25 04/01/17 20:25 Lab Statement: Any lab studies that have been ordered have been reviewed, and results considered in the medical decision making process. Course/Dx - Course Course Of Treatment: Ms. Jasso presented with bizarre behavior that was difficult to assess as she was not cooperative to the exam. She did seem to attend to internal stimuli. She was medically cleared and is undergoing a MHE at this time. - Differential Dx/Clinical Impression Provider Diagnosis: Acute psychosis Discharge - Discharge Plan Condition: Stable Disposition: ADMITTED TO [facility] Discharge Disposition Comment: Signed out to Dr. Pitt at change of shift. The documentation as recorded by the Maia thomas Gabriel accurately reflects the service I personally performed and the decisions made by me, Jose Raul Banks MD.
[2017-04-02] MEDS: Vitamin THERAPEUTIC TAB PO SCH (11:32)
[2017-04-02] MEDS ORDERED: ARIPiprazole TAB* 5 MG ONE (15:30)
[2017-04-02] MEDS ORDERED: lamoTRIgine TAB(*) 25 MG ONE (15:30)
--- NOTE | 2017-04-02 20:01 | HP ---
PSYCHIATRIC HISTORY AND PHYSICAL: DATE OF ADMISSION: 04/02/17 JUSTIFICATION FOR ADMISSION: The patient is in need of 24-hour supervision and care secondary to psychotic behavior, suicidal ideations, and inability to care for herself in a less restrictive setting. CHIEF COMPLAINT: "All I want to do is get a shot of Ativan so that I can sleep through the day." HISTORY OF PRESENT ILLNESS: The patient is a 26-year-old single Saudi-Somali female with a history of bipolar disorder who is known to this clinician from 2 prior hospitalizations here on the [facility] who now returns to the hospital on 9.41 legal status escorted by the [place] Police due to suicidal ideations and bizarre agitated behavior. Apparently, the patient called the police telling them that she wanted to . When the officers arrived, they noted that her behavior was "irrational." Specifically, they indicated that she had defecated on her bed and told them that she had been eating her own feces. On arrival to the medical center, she was unable to maintain behavioral control and attempted to elope from the ED on more than one occasion. This necessitated intramuscular stat antipsychotic medications. Initially, she was requesting help to call her mother, but then refused to provide any contact information, later stating that her parents were . She also indicated that her brother was an axe murderer and she appeared to be interacting with unseen people. We were able to contact her brother, who is a dentist in [place], who indicated that he has been in contact with her recently, but was concerned that she perhaps was not taking her medications. I also spoke with her outpatient psychiatrist, Dr. Nayan Garcia, who indicated that he had seen Edyta 1 week ago and she seemed like she was doing fine. He did receive a call from Edyta' s father, who is overseas currently, reporting to him that Edyta had been complaining about neighbors making noise in her apartment building, but that the landlord did not seem to think this was possible given the fact that the neighbors are frequently out of town. When I met with the patient she was agitated, requesting stat medications. She was unable to provide much coherent history. She appears to be disheveled, malodorous, and in some distress. PAST PSYCHIATRIC HISTORY: The patient has been seeing Dr. Nayan Garcia for the past 8 months. Prior to this, she had briefly received treatment at the [facility] on the campus of [facility]. In the past, she has taken olanzapine, aripoprazole, and lamotrigine. 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 She had hospitalizations here on the [facility] in June of 2016, November of 2016, and currently now in March. We have tried at times to get her referred to the [facility]; however, she has refused this. SUBSTANCE ABUSE HISTORY: The patient states that she has not been abusing alcohol, illicit drugs, or tobacco recently. PAST MEDICAL HISTORY: Noncontributory. CURRENT MEDICATIONS: 1. Abilify 15 mg p.o. daily. 2. Lamotrigine 100 mg p.o. b.i.d. 3. Concerta 54 mg p.o. q.a.m. FAMILY HISTORY: Unknown. SOCIAL HISTORY: The patient grew up as a [place]- immigrant with her family that traveled often because her father was a mathematical sciences professor. She lived for a considerable time in [place], [place], but also moved to [place], [place] and [place], [place]. Later, she got an undergraduate degree from [employer], then an JASPREET from [employer]. 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 She has never been , has no children, it is unclear whether she is sexually active. She has no history of service. She currently lives alone in an apartment here in [place]. She does have 1 brother, who resides in [place] and her parents are currently traveling in [place]. She has no known history of legal entanglement. REVIEW OF SYSTEMS: The patient denies double vision of headache. She denies difficulty breathing, sore throat, cough, or chest pain. Denies abdominal pain , nausea, vomiting, diarrhea, or constipation. She denies difficulty ambulating , enlarged lymph nodes, rashes, changes in weight, or fevers. PHYSICAL EXAMINATION VITAL SIGNS: Blood pressure 129/79, heart rate 65, respiratory rate 16, temperature is 99.2 degrees Fahrenheit, oxygen saturations are 97% on room air. HEENT: Head is normocephalic, atraumatic. NECK: Supple. CHEST: Clear to auscultation bilaterally. CARDIAC: Reveals normal heart sounds. ABDOMEN: Soft and nontender. SKIN: Warm and dry. MUSCULOSKELETAL: Reveals no sign of edema. NEUROLOGIC: She is grossly intact with no focal deficits. MENTAL STATUS EXAMINATION: The patient is a young Saudi-Somali female wearing paper scrubs. She is disheveled, agitated, uncooperative. Speech has high latencies and lack of spontaneity. Mood appears to be agitated with a somewhat labile affect. Thought process is confused and nonlinear. Thought content is significant for paranoid ideations that others are watching her. She is making suicidal statements without plan. She denies homicidality. She is endorsing both auditory and visual hallucinations. Insight and judgement are limited given her unwillingness to receive inpatient treatment. Cognitively , she is awake and alert with what would appear to be an average intellect. LABORATORY DATA: Her CBC and complete metabolic panel are within normal limits. TSH is normal at 1.56. Beta hCG is within normal limits. Urinalysis is significant for 3+ red blood cells, 1+ leukocyte esterases, 2+ blood, 1+ ketones, and 1+ bacteria. Her urine drug screen is negative for all substances tested including alcohol. DIAGNOSES: As follows: Boody I: Bipolar disorder, most recent episode depressed severe with psychotic features. Boody II: Deferred. Boody III: None. Boody IV: Moderate primary support stressors. Boody V: At this time is 25. IMPRESSION: The patient is a 26-year-old single Saudi-S[place]i female with a history of bipolar and at least 4 prior inpatient psychiatric hospitalizations for mood dysregulation and psychosis who now presents having been brought in by the police due to bizarre behavior and suicidality in the context of what is likely to be nonadherence with outpatient medications. We have spoken with her outpatient psychiatrist and know what she is supposed to be taking. We will try to follow up with her family to see whether they can be involved in her treatment. PLAN: The patient is admitted to the adult behavioral health unit where she is placed on q.15-minute checks for her own safety. We will resume aripoprazole at the dose of 15 mg daily, but hold her Concerta as I do not think she needs amphetamines while she is psychotic. Her lamotrigine is something that she has likely not been taking and I do not want to give her the full dose for fear of a very serious rash. Instead, we will start her on only 50 mg daily and titrate her up gradually to the full 100 mg twice daily dose that she is supposed to be taking. I do think that the family needs to be involved at this point and should consider picking her up and taking her out of the [facility] so that she has closer family support. [id number]/[facility] #: [id number] MTDD
[2017-04-02] MEDS: lamoTRIgine TAB(*) 25 MG PO SCH (20:16)
[2017-04-02] MEDS: Haloperidol TAB* 5 MG PO PRN (20:16)
[2017-04-03] MEDS: lamoTRIgine TAB(*) 25 MG PO SCH ×2 (09:30→20:26)
[2017-04-03] MEDS: Vitamin THERAPEUTIC TAB PO SCH (09:30)
[2017-04-03] MEDS: ARIPiprazole TAB* 15 MG PO SCH (09:30)
--- NOTE | 2017-04-03 11:38 | PN ---
Subjective - Subjective Date of Service: 04/03/17 Service Type: 63488 Hosp care 15 min low complexity Subjective: Otto appears calm and cooperative and much more reality-focussed this AM. "I 'm so embarrassed about being back here. I'm hearing from everybody how I was acting." She admits to limited adherence with medications on an outpatient basis. "I got bored and I started thinking about the Russians. It was stupid of me." She acknowledges that she is currently on medical leave from [employer] until this summer and that it may benefit her to leave [place], at least temporarily, and stay with her parents, who are now travelling in [place], or her brother, who is a dentist in the [place] area. She is agreeable with resuming medications, including aripiprazole and lamotrigine. Objective - Appearance Appearance: Well Developed/Nourished Dysmorphic Features: No Hygiene: Normal Grooming: Disheveled - Behavior Psychomotor Activities: Normal Exhibits Abnormal Movement: No - Attitude and Relatedness Attitude and Relatedness: Cooperative Eye Contact: Fair - Speech Quality: Unpressured Latencies: Normal Quantity: Appropriate - Mood Patient's Decription of Mood: "Okay" - Affect Observed Affect: Fair Affect Consistent with: Euthymia - Thought Process Patient's Thought Process: Coherent Thought Content: No Passive Wish, No Suicidal Planning, No Homicidal Ideation, No Paranoid Ideation - Sensorium Experiencing Hallucinations: No, Sensorium is Clear Type of Hallucinations: Visual: No, Auditory: No, Command: No - Level of Consciousness Level of Consciousness: Alert Orientation: Yes Intact, Yes Orientated to Time, Yes Orientated to Place, Yes Orientated to Person - Impulse Control Impulse Control: Tenuous - Insight and Judgement Insight and Judgement: Fair - Group Participation Particating in Group Activities: No - Medication Management Medication Management Adherence: Yes Assessment - Assessment Merits Inpatient Hospitalization: For Immediate Safety, For Stabilization Inpatient DSM-V Dx: F31.2 Clinical Impression: 26 y.o. 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 She admits to poor adherence with outpatient med management. Plan - Plan Treatment Plan: Name: OTTO HARDING Birthdate: 1990 [id number] We have resumed aripiprazole at 15mg PO qday and resumed lamotrigine at the lower dose of 50mg PO BID. She normally takes this at 100mg BIB but hasn't been adherent and we don't want to risk Rupesh by restarting her at that dose. We will attempt to contact her family and would strongly encourage that she reside with one of them for enhanced psychosocial support at this difficult time. Continue inpatient care. Continued Medication Management: Continue Outpt Medication Medications: Current Medications Acetaminophen (Tylenol Tab*) 650 mg PO Q4H PRN PRN Reason: PAIN or TEMP > 101 F Al Hydrox/Mg Hydrox/Simethicone (Maalox Plus*) 30 ml PO Q4H PRN PRN Reason: INDIGESTION Aripiprazole (Abilify Tab*) 15 mg PO DAILY [facility] Last Admin: 04/03/17 09:30 Dose: 15 mg Haloperidol (Haldol Tab*) 5 mg PO Q6H PRN PRN Reason: AGITATION Last Admin: 04/02/17 20:16 Dose: 5 mg Lamotrigine (Lamictal Tab(*)) 50 mg PO BID [facility] Last Admin: 04/03/17 09:30 Dose: 50 mg Multivitamins (Theragran Tab*) 1 tab PO DAILY [facility] Last Admin: 04/03/17 09:30 Dose: 1 tab - Discharge Plan Discharge Plan: Inpatient Hospitalization
[2017-04-04] MEDS: ARIPiprazole TAB* 15 MG PO SCH (08:58)
[2017-04-04] MEDS: Vitamin THERAPEUTIC TAB PO SCH (08:58)
[2017-04-04] MEDS: lamoTRIgine TAB(*) 25 MG PO SCH ×2 (08:58→20:22)
--- NOTE | 2017-04-04 13:10 | PN ---
Subjective - Subjective Date of Service: 04/04/17 Service Type: 00428 Hosp care 15 min low complexity Subjective: Otto seems back to her baseline and continues to be embarrassed about being back here. She is insightful about the lack of support she has in this community and wishes she could be with her parents or her brother. Her mother and father are currently traveling from [place] to [facility] and will not be available to come to [place] for several more weeks. "I wasn't taking good care of myself." She complains of fatigue and wonders about her thyroid, however, her TSH is normal. There is no evidence of psychosis. Objective - Appearance Appearance: Well Developed/Nourished Dysmorphic Features: No Hygiene: Normal Grooming: Well Kept - Behavior Psychomotor Activities: Normal Exhibits Abnormal Movement: No - Attitude and Relatedness Attitude and Relatedness: Cooperative Eye Contact: Good - Speech Quality: Unpressured Latencies: Normal Quantity: Appropriate - Mood Patient's Decription of Mood: "Good" - Affect Observed Affect: Fair Affect Consistent with: Euthymia - Thought Process Patient's Thought Process: Coherent Thought Content: No Passive Wish, No Suicidal Planning, No Homicidal Ideation, No Paranoid Ideation - Sensorium Experiencing Hallucinations: No, Sensorium is Clear Type of Hallucinations: Visual: No, Auditory: No, Command: No - Level of Consciousness Level of Consciousness: Alert Orientation: Yes Intact, Yes Orientated to Time, Yes Orientated to Place, Yes Orientated to Person - Impulse Control Impulse Control: Tenuous - Insight and Judgement Insight and Judgement: Fair - Group Participation Particating in Group Activities: Yes - Medication Management Medication Management Adherence: Yes Assessment - Assessment Merits Inpatient Hospitalization: For Immediate Safety, For Stabilization Inpatient DSM-V Dx: F31.2 Clinical Impression: 26 y.o. 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 She admits to poor adherence with outpatient med management. Plan - Plan Treatment Plan: Name: OTTO HARDING Birthdate: 1990 [id number] We have resumed aripiprazole at 15mg PO qday and resumed lamotrigine at the lower dose of 50mg PO BID. She normally takes this at 100mg BIB but hasn't been adherent and we don't want to risk Steve-Rik by restarting her at that dose. We will attempt to contact her family and would strongly encourage that she reside with one of them for enhanced psychosocial support at this difficult time. Continue inpatient care. Continued Medication Management: Continue Outpt Medication Medications: Current Medications Acetaminophen (Tylenol Tab*) 650 mg PO Q4H PRN PRN Reason: PAIN or TEMP > 101 F Al Hydrox/Mg Hydrox/Simethicone (Maalox Plus*) 30 ml PO Q4H PRN PRN Reason: INDIGESTION Aripiprazole (Abilify Tab*) 15 mg PO DAILY [facility] Last Admin: 04/04/17 08:58 Dose: 15 mg Haloperidol (Haldol Tab*) 5 mg PO Q6H PRN PRN Reason: AGITATION Last Admin: 04/02/17 20:16 Dose: 5 mg Lamotrigine (Lamictal Tab(*)) 50 mg PO BID [facility] Last Admin: 04/04/17 08:58 Dose: 50 mg Multivitamins (Theragran Tab*) 1 tab PO DAILY [facility] Last Admin: 04/04/17 08:58 Dose: 1 tab - Discharge Plan Discharge Plan: Inpatient Hospitalization Lab Results - Lab Results Lab Results: 04/04/17 04/04/17 06:58 06:58 Hemoglobin A1c 5.0 Triglycerides 75 Cholesterol 162 LDL Cholesterol 101 HDL Cholesterol 45.8
[2017-04-04] MEDS: Haloperidol TAB* 5 MG PO PRN (17:50)
[2017-04-04] MEDS: Al Hydrox/Mg Hydrox/Simet LIQ* 30 ML UDC PO PRN (18:31)
[2017-04-05] MEDS: Vitamin THERAPEUTIC TAB PO SCH (08:54)
[2017-04-05] MEDS: lamoTRIgine TAB(*) 25 MG PO SCH ×2 (08:54→20:28)
[2017-04-05] MEDS: ARIPiprazole TAB* 15 MG PO SCH (08:54)
[2017-04-05] MEDS: Haloperidol TAB* 5 MG PO PRN (18:35)
[2017-04-06] MEDS: Vitamin THERAPEUTIC TAB PO SCH (08:09)
[2017-04-06] MEDS: ARIPiprazole TAB* 15 MG PO SCH (08:09)
[2017-04-06] MEDS: lamoTRIgine TAB(*) 25 MG PO SCH ×2 (08:09→20:50)
[2017-04-06] MEDS: Al Hydrox/Mg Hydrox/Simet LIQ* 30 ML UDC PO PRN (10:31)
--- NOTE | 2017-04-06 11:38 | PN ---
[facility]: Group Therapy Note - Service Type Service Type: 06213 Group Psychotherapy - Cognitive Behavioral Group Therapy ( CBT):Patient was attentive and participatory in CBT programming this morning, and remained in good behavioral control. Patient expressed positive insights regarding relevant treatment interventions and goals.
[2017-04-06] MEDS: Haloperidol TAB* 5 MG PO PRN ×2 (12:56→20:50)
--- NOTE | 2017-04-06 13:29 | PN ---
Subjective - Subjective Date of Service: 04/06/17 Service Type: 17712 Hosp care 15 min low complexity Subjective: The patient appears well groomed, calm and cooperative. She is fixated somewhat on whether or not Dr. Garcia will continue her on Concerta after she leaves the hospital. "I can't pick and choose with my meds anymore. I know I have to take the Abilify and Lamictal, but they make me tired. I have to be able to function. I have to write papers and seem normal. If I'm gonna be on these the other medicine would help." She reports that she spoke with her parents on the phone and that her mother is coming to [place] to spend a month with her starting April 16. Thereafter, there is some discussion of Otto going to live with her parents in either [place] or [place]. Objective - Appearance Appearance: Well Developed/Nourished Dysmorphic Features: No Hygiene: Normal Grooming: Well Kept - Behavior Psychomotor Activities: Normal Exhibits Abnormal Movement: No - Attitude and Relatedness Attitude and Relatedness: Cooperative Eye Contact: Good - Speech Quality: Unpressured Latencies: Normal Quantity: Appropriate - Mood Patient's Decription of Mood: "Good" - Affect Observed Affect: Good Affect Consistent with: Euthymia - Thought Process Patient's Thought Process: Coherent Thought Content: No Passive Wish, No Suicidal Planning, No Homicidal Ideation, No Paranoid Ideation - Sensorium Experiencing Hallucinations: No, Sensorium is Clear Type of Hallucinations: Visual: No, Auditory: No, Command: No - Level of Consciousness Orientation: Yes Intact, Yes Orientated to Time, Yes Orientated to Place, Yes Orientated to Person - Impulse Control Impulse Control: Intact - Insight and Judgement Insight and Judgement: Good - Group Participation Particating in Group Activities: Yes - Medication Management Medication Management Adherence: Yes Assessment - Assessment Merits Inpatient Hospitalization: Consolidate Improvements, Pending Safe DC Plan Inpatient DSM-V Dx: F31.2 Clinical Impression: 26 y.o. 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 She admits to poor adherence with outpatient med management. Plan - Plan Treatment Plan: Name: OTTO HARDING Birthdate: 1990 [id number] We have resumed aripiprazole at 15mg PO qday and resumed lamotrigine at the lower dose of 50mg PO BID. She normally takes this at 100mg BIB but hasn't been adherent and we don't want to risk Wilson-Rik by restarting her at that dose. We support her decision to live with her family and continue her leave of absence from [employer]. She is appearing back to her baseline so we will likely discharge her tomorrow, April 07, and she can f/u with Dr. Garcia. Continued Medication Management: Continue Outpt Medication Medications: Current Medications Acetaminophen (Tylenol Tab*) 650 mg PO Q4H PRN PRN Reason: PAIN or TEMP > 101 F Al Hydrox/Mg Hydrox/Simethicone (Maalox Plus*) 30 ml PO Q4H PRN PRN Reason: INDIGESTION Last Admin: 04/06/17 10:31 Dose: 30 ml Aripiprazole (Abilify Tab*) 15 mg PO DAILY [facility] Last Admin: 04/06/17 08:09 Dose: 15 mg Haloperidol (Haldol Tab*) 5 mg PO Q6H PRN PRN Reason: AGITATION Last Admin: 04/06/17 12:56 Dose: 5 mg Lamotrigine (Lamictal Tab(*)) 50 mg PO BID [facility] Last Admin: 04/06/17 08:09 Dose: 50 mg Multivitamins (Theragran Tab*) 1 tab PO DAILY [facility] Last Admin: 04/06/17 08:09 Dose: 1 tab - Discharge Plan Discharge Plan: Outpatient Follow Up Outpatient Program: Dr. Nayan Garcia
[2017-04-07 08:53] VITALS: BP 98/45
[2017-04-07] MEDS: ARIPiprazole TAB* 15 MG PO SCH (09:13)
[2017-04-07] MEDS: lamoTRIgine TAB(*) 25 MG PO SCH (09:13)
[2017-04-07] MEDS: Vitamin THERAPEUTIC TAB PO SCH (09:14)
--- NOTE | 2017-04-07 17:02 | DS ---
DATE OF ADMISSION: 04/02/2017. DATE OF DISCHARGE: 04/07/2017. DISCHARGE DIAGNOSES: AXIS I: Bipolar disorder, most recent episode manic, severe with psychotic features. AXIS II: Deferred. AXIS III: None. AXIS IV: Moderate, primary support stressors. AXIS V: At the time of admission was 25 and at the time of discharge is 60. CONDITION AT THE TIME OF DISCHARGE: Stable. The patient is back to her psychiatric baseline which is calm, cooperative, highly intelligent, and able to meet her own needs. The patient is remorseful for not being adherent with her outpatient psychiatric medication regimen and she is committing to improving her compliance. 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 The patient has done well here in the hospital. She has been adherent with all medications, been going to groups, and socializing with peers. We have spoken with her outpatient provider, Dr. Nayan Garcia, who is in agreement with the discharge plan and also agreeable to continuing providing treatment in the outpatient setting. Edyta is requesting discharge and we feel that she is safe to receive treatment in a less restrictive setting. She denied suicidal or homicidal ideations and there is no further evidence of psychotic behavior. MENTAL STATUS EXAM AT THE TIME OF DISCHARGE: The patient is a young, [place]- [place] female who is attractive, clean, well-groomed, makes good eye contact. Speech has a normal rate, tone and volume. Mood is euthymic with a full affect. Thought process is linear and goal-directed. Thought content is significant for her desire to be discharged from the hospital. She denies suicidal or homicidal ideations. She denies auditory or visual hallucinations. There is no evidence of psychosis. Insight and judgement are fair given her willingness to follow-up with outpatient treatment. Cognitively, she is awake and alert with what would appear to be an average intellect. LABORATORY DATA: Metabolic studies were performed on 04/04/2017. Her hemoglobin A1c was 5.0 percent, triglycerides 75, cholesterol 162, LDL cholesterol 101, HDL cholesterol 45.8. DISCHARGE INSTRUCTIONS TO THE PATIENT: A. Medications: She is taking Aripiprazole 15 mg p.o. at bedtime. She is also taking Lamotrigine 50 mg p.o. b.i.d. B. Diet: Regular. C. Activities: As tolerated. The patient is a nonsmoker. There are no laboratory or diagnostic studies pending at the time of discharge. D. Follow-up care: The patient will follow-up with private psychiatric, Dr. Spicer Member, in the community within one week of discharge. E. Substance abuse follow-up: Nonapplicable. 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 Apparently, the patient called the police telling them that she wanted to . When the officers arrived, they noted that her behavior was "irrational." Specifically, they indicated that she had defecated on her bed and had told them that she had been eating her own feces. On arrival to the medical center, she was unable to maintain behavioral control and attempted at one point to elope from the ED. This necessitated intramuscular antipsychotic medications. Initially, she was requesting help to call her mother, but then refused to provide any contact information, later stating that her parents were . She also indicated that her brother was an axe murderer and she appeared to be interacting with unseen people. When we were able to contact her brother, who is a dentist in the [place], [place] area , he indicated that he has been in contact with her recently, but was concerned that perhaps she was not taking her medications. I was able to speak to her outpatient psychiatrist, Dr. Spicer Member, who indicated that he had seen her within one week of admission and she had seemed fine; however, he did later receive a call from Edyta's father, who is overseas, reporting to him that Edyta had been making complaints about her neighbors whom she accused of making excess noise. When the parents called her landlord, the landlord disputed this account, indicating that it was actually Edyta who was causing a disruption. When I met with the patient, she was agitated, requesting stat medications. She was unable to provide much coherent history. She appeared to be disheveled, malodorous, and in some distress. HOSPITAL COURSE - PART B: Psychiatric treatment rendered: The patient was admitted to the Adult Behavioral Health Unit where she was placed on q.15 minutes checks for her own safety. Initially, she did receive prn Haldol because of her agitation, but she was agreeable to scheduled medications which included Aripiprazole and Lamotrigine. Her Lamotrigine was decreased from 100 mg twice daily to 50 mg daily given the fact that she had been nonadherent with this and we did not want to put her at any additional risk for a significant rash. Her Abilify was immediately placed back at the outpatient dose which is 15 mg daily. Notably, we withheld the Concerta and Xanax that she receives in the outpatient environment from Dr. Garcia. The patient did improve here almost immediately upon resuming antipsychotic therapy. Her thought disorganization improved. She became calm, able to negotiate her own needs. She starting bathing and grooming appropriately. She started attending group programming as well as eating meals and taking better care of herself. Her reality testing improved. She was able to reach her family who were quite concerned given the fact that this is her third psychiatric hospitalization while living in [place] for the past [id number]. They agreed to send her mother to spend the month of April with her. After that, the patient is looking to leave for [place] in order to stay with her parents. She is currently on a medical leave from school, but is eager to return to her studies at some point when she is psychiatrically more stable. Follow-up will be with Dr. Garcia in the community. [id number]/[facility] #: [id number] KEYLA
== END 2017-04-07 14:25 | disposition home or self-care (01) | DRG 885 ==
LOC: ED 18:51 → BSU 04-02 06:34
PROVIDERS: ADMIT Psychiatry & Neurology Psychiatry; ATTEND Psychiatry & Neurology Psychiatry
PROC: GZHZZZZ Group Psychotherapy (ICD-10-PCS; principal; 2017-04-06)
DX: F31.2 Bipolar disorder, current episode manic severe with psychotic features (principal); R45.851 Suicidal ideations; Z91.14 Patient's other noncompliance with medication regimen; J45.909 Unspecified asthma, uncomplicated; F41.9 Anxiety disorder, unspecified; G43.909 Migraine, unspecified, not intractable, without status migrainosus; F90.9 Attention-deficit hyperactivity disorder, unspecified type; F43.10 Post-traumatic stress disorder, unspecified; F17.210 Nicotine dependence, cigarettes, uncomplicated; F29 Unspecified psychosis not due to a substance or known physiological condition; R45.1 Restlessness and agitation; Z81.8 Family history of other mental and behavioral disorders
CPT/HCPCS: 36415; 80053; 80061; 80307; 80320; 80329; 81003; 81015; 83036; 84443; 84702; 85025; 87086; 90853; 99222; 99231; 99238; 99285; A9270-GY; G0480; J1200; J1630; J2060